=== PATIENT | female | born 1960 | race Caucasian/White ===

== ENCOUNTER 2020-06-22 10:05 | Outpatient (REF) | payer OTHER, SELFPAY ==
[2020-06-22 12:19] LABS: MANUAL DIFF FLAG NO
[2020-06-22 12:26] LABS: Basophils Absolute Auto 0.1 X10*3/uL (0.0-0.2); Basophils Percent Auto 0.5 % (0-2); Eosinophils Absolute Auto 0.3 X10*3/uL (0.0-0.4); Eosinophils Percent Auto 2.6 % (0-4); Hematocrit 40.9 % (37-47); Hemoglobin 13.2 g/dl (12.0-16.0); Imm Gran Abs Auto 0.04 X10*3/uL (0.00-0.03); Imm Gran Pct Auto 0.4 % (0.0-0.4); Lymphocytes Absolute Auto 2.9 X10*3/uL (1.2-4.9); Lymphocytes Percent Auto 29.6 % (20-40); Mean Corpuscular HGB Conc 32.3 g/dl (31.0-35.0); Mean Corpuscular Hemoglobin 29.1 pg (27.0-33.0); Mean Corpuscular Volume 90.3 fL (80-98); Mean Platelet Volume 12.9 fL (9.4-12.3); Monocytes Absolute Auto 0.8 X10*3/uL (0.1-1.2); Monocytes Percent Auto 8.2 % (2-11); Neutrophils Absolute Auto 5.8 X10*3/uL (2.0-8.3); Neutrophils Percent Auto 58.7 % (45-73); Platelet Count 204 X10*3/uL (160-400); Red Blood Count 4.53 X10*6/uL (4.20-5.50); Red Cell Distribution Width 12.4 % (11.0-16.0); White Blood Count 9.9 X10*3/uL (4.8-10.8)
[2020-06-22 12:40] LABS: Glucose Urine UA >=1000 MG/DL (NEG); Leukocyte Esterase Urine NEG (NEG); Nitrite Urine NEG (NEG); PH 5.5 (5.0-8.0); Urine Blood NEG (NEG); Urine Ketones NEG (NEG); Urine Protein NEG (NEG-TRACE)
[2020-06-22 12:41] LABS: Appearance Urine HAZY; Color Urine YELLOW
[2020-06-22 13:08] LABS: Bacteria Urine 3+ /LPF; RBC Urine 0 /HPF (0); Squamous Epithelial Cell Urine TRACE /LPF; WBC Clumps Urine NOTED; WBC Urine 50-75 /HPF (0-4)
[2020-06-22 13:56] LABS: Creatinine Urine 70.19 mg/dL; Microalbum/Creatinine Ratio Ur 24.2 ug/mg cr
[2020-06-22 14:14] LABS: Hemoglobin A1c % > 14.0 %
[2020-06-22 14:46] LABS: TSH reflex Free T4 1.63 uIU/mL (0.32-4.0)
[2020-06-22 15:06] LABS: Alanine Aminotransferase 9 U/L (0-31); Albumin Level 3.7 g/dL (3.5-5.0); Alkaline Phosphatase 98 U/L (39-117); Anion Gap 12 (12-20); Aspartate Amino Transferase 7 U/L (5-31); Bilirubin Total 0.3 mg/dL (0.0-1.0); Blood Urea Nitrogen 25 mg/dL (9-16); Calcium 8.8 mg/dL (8.4-10.2); Carbon Dioxide 29 mmol/L (22-29); Chloride 100 mmol/L (96-108); Cholesterol 186 mg/dL; Estimated Glomerular Filt Rate 45; HDL Cholesterol 31 mg/dL; LDL Cholesterol Calculated 119 mg/dl; Potassium 5.3 mmol/L (3.3-5.1); Sodium 136 mmol/L (135-145); Total Protein 6.9 g/dL (6.5-8.0); Triglycerides 180 mg/dL
[2020-06-22 15:10] LABS: Glucose Fasting 373 mg/dL (60-99)
== END 2020-06-22 10:06 | disposition home or self-care (01) ==
LOC: HO.10HDL 10:05
PROVIDERS: Visit Provider Internal Medicine
DX: E11.22 Type 2 diabetes mellitus with diabetic chronic kidney disease (principal); I12.9 Hypertensive chronic kidney disease with stage 1 through stage 4 chronic kidney disease, or unspecified chronic kidney disease; N18.2 Chronic kidney disease, stage 2 (mild); K21.9 Gastro-esophageal reflux disease without esophagitis; F17.200 Nicotine dependence, unspecified, uncomplicated; E78.00 Pure hypercholesterolemia, unspecified; E66.01 Morbid (severe) obesity due to excess calories; Z68.42 Body mass index [BMI] 45.0-49.9, adult
CPT/HCPCS: 36415; 80053; 80061; 81001; 82043; 83036; 84443; 85025; 87086; 87088; 87186

== ENCOUNTER → 2020-07-21 13:24 | Outpatient (BNVA) | payer OTHER, SELFPAY | PROVIDERS: PCP Internal Medicine; Referring Provider Internal Medicine; Visit Provider Internal Medicine Endocrinology, Diabetes & Metabolism | DX: E11.65 Type 2 diabetes mellitus with hyperglycemia (principal); E11.42 Type 2 diabetes mellitus with diabetic polyneuropathy; Z79.4 Long term (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; I10 Essential (primary) hypertension; E78.00 Pure hypercholesterolemia, unspecified; E66.01 Morbid (severe) obesity due to excess calories; Z68.42 Body mass index [BMI] 45.0-49.9, adult | CPT/HCPCS: 82947; 99212 ==

== ENCOUNTER 2020-12-02 22:45 | Emergency (ER) | payer OTHER, SELFPAY ==
[2020-12-02 23:40] VITALS: BP 151/68; PULSE 97; RESP 20; TEMP 37.1; O2SAT 97; BMI 42.9
--- NOTE | 2020-12-03 06:20 | ED_ITS ---
HPI - Extremity Problem General Chief complaint: Extremity Problem Stated complaint: leg pain Time Seen by Provider: 12/03/20 06:09 Source: patient Mode of arrival: ambulatory Limitations: no limitations History of Present Illness HPI Narrative: 60-year-old female who presents emergency department for evaluation of a nonhealing ulcer to her right lower extremity with surrounding erythema. The patient states that over the past 2 weeks she had an ulcer that developed over her right ankle which was not healing. She states that she has had a similar ulcer this area in the past. She states that she has also noticed increased redness around the ulcer with increased warmth and pain. She denied fever, chills, fatigue, nausea, vomiting, chest pain or shortness of breath. The patient is a diabetic. Related Data Home Medications Medication Instructions Recorded Confirmed flash glucose sensor #1 ea 03/22/20 07/21/20 Previous Rx's Medication Instructions Recorded atorvastatin 80 mg tablet 80 mg PO BEDTIME 30 Days #30 tab 07/21/20 blood sugar diagnostic (FreeStyle #120 ea 07/21/20 Lite Strips) dulaglutide 1.5 mg/0.5 mL 1.5 mg SUBCUT QWEEK 30 Days #2.5 ml 07/21/20 subcutaneous pen injector insulin aspart See Rx Instructions SUBCUT TID 30 07/21/20 (niacinamide)(U-100) 100 unit/mL(3 Days #15 ml mL) subcutaneous pen (Fiasp FlexTouch U-100 Insulin) insulin degludec 200 unit/mL (3 70 unit SUBCUT QAM 30 Days #12 ml 07/21/20 mL) subcutaneous pen metformin 500 mg tablet,extended 500 mg PO BID 30 Days #60 tab 07/21/20 release 24 hr pen needle, diabetic 32 gauge x #400 ea 07/21/2032 (BD Katie 2nd Gen Pen Needle) lisinopril 5 mg tablet 5 mg PO DAILY #30 tab 10/12/20 cefadroxil 1 gram tablet 1,000 mg PO BID 7 Days #14 tab 12/03/20 doxycycline hyclate 100 mg tablet 100 mg PO Q12H 7 Days #14 tab 12/03/20 Allergies Allergy/AdvReac Type Severity Reaction Status Date / Time No Known Allergies Allergy Verified 09/24/20 15:37 Review of Systems Review of Systems: Yes all other systems are reviewed and are negative PMFSH Past Medical History Medical History Benign essential hypertension Chronic kidney disease (CKD), stage II (mild) (Unknown) Chronic kidney disease, stage III (moderate) Diabetes type 2, uncontrolled Diabetic polyneuropathy associated with type 2 diabetes mellitus Dyslipidemia GERD without esophagitis 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 Morbid obesity with BMI of 45.0-49.9, adult Pure hypercholesterolemia Smoker Type 2 diabetes mellitus with diabetic chronic kidney disease Ulcer of right ankle Urinary incontinence Varicose 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 Surgical History Hx of section Hx of umbilical hernia repair Hx of vascular surgery Status post phlebectomy Family History Family History Father CVA (cerebral vascular accident) Heart disease Mother Lung disease Son ADHD Social History Social History Household Members: Family Housing: House Alcohol intake: never Patient Tobacco Use Status: Current everyday Tobacco user Cigarettes Per Day: 10 Advance Directives: No Advance Directives Information Provided: Yes service: No Current occupational status: unemployed Physical Exam Vital Signs: Vital Signs: Last Vital Signs Temp 98.7 F 12/02/20 23:40 Pulse 97 12/02/20 23:40 Resp 20 12/02/20 23:40 BP 151/68 H 12/02/20 23:40 Pulse Ox 97 12/02/20 23:40 Body Mass Index 42.9 Const: General: cooperative Nutritional Appearance: obese Orientation/consciousness: oriented to person and oriented to place Limitations: no limitations HENMT: Head: Yes normal to inspection Ears: external ears normal General nose exam: Normal external nose present Face and sinus: Yes normal facial exam Eyes: General: appearance normal, both eyes and all related structures Neck: Neck: Yes normal visual inspection and Yes supple Chest: Chest palpation & inspection: normal inspection of the chest Resp: Effort & Inspection: normal respiratory effort GI: Palpation (GI): Soft to palpation, nontender and no guarding Neuro: General: oriented to person and oriented to place Extrem: Other: The patient has a circular area of skin breakdown to the right lower extremity just above the ankle, there is an area of surrounding erythema measuring approximately 10 x 8 cm which is warm to the touch, there is no discharge noted, the patient has some nonpitting edema and there was no flocculence noted to palpation. Psych: Appearance: grossly normal Course Course Course Narrative: 60-year-old female with history of diabetes who presents emergency department for a nonhealing wound to her right lower extremity x2 weeks with erythema and increased warmth. Patient does have some skin breakdown over her right lower extremity just above the ankle with surrounding erythema with increased warmth. There is no evidence for an abscess at this time. The patient will be started on Duricef 1000 mg twice a day for 7 days and doxycycline 100 mg twice a day for 7 days. She was advised to use a heating pad on low for 15 minutes 4 to 6 times a day and keep her leg elevated. She was discharged home. The patient was given verbal and printed instructions prior to discharge. The patient was advised to follow-up with her PCP in 2 days and to return to the emergency department if her symptoms get worse or if she develops any new symptoms that are concerning to her. Discharge Plan Discharge Clinical Impression: Cellulitis of right lower extremity Patient Disposition: Home, Self-Care Instructions: Cellulitis (ED) Additional Instructions: Cellulitis Discharge Instructions You have an infection of your skin. This is called cellulitis. This is usually caused by bacteria on your skin that gets under your skin and then causes the infection Take Duricef 1000 mg, 1 pill twice a day for 7 days. Also take doxycycline 100 mg pills, 1 pill twice a day for 7 days. These are antibiotics that should help your body fight off the infection. Keep the area of cellulitis elevated to help reduce swelling in the infected area and this helps with the healing process Also apply a heating pad on low or a warm compress for 15 minutes, 4-6 times a day. This will increase the blood flow to the area and will bring white blood cells to the area which will help your body fight off the infection. Also take Tylenol( acetaminophen) 325 mg pills, 2 pills every 4 hours as needed for pain. If we greta a line around the area of cellulitis, the redness should withdraw from the line in the next 1-3 days. If the redness crosses the line this is a sign that the infection is getting wor se and you should see your doctor or return to the Emergency Department for a recheck. Other signs of worsening infection include fever, chills, weakness, increased pain, increased redness, increased swelling or red streaks going away from the area of infection. If you develop any of these symptoms or any other symptoms that are concerning to you, see your doctor immediately or return to the Emergency Department. Follow up with your doctor in 3 days for a recheck Please read the other printed instructions on cellulitis. Prescriptions: New doxycycline hyclate 100 mg tablet 100 mg PO Q12H 7 Days Qty: 14 RF: 0 cefadroxil 1 gram tablet 1,000 mg PO BID 7 Days Qty: 14 RF: 0 No Action lisinopril 5 mg tablet 5 mg PO DAILY Qty: 30 RF: 4 (DME) FreeStyle Mariana 14 Day Sensor Kit See Rx Instructions ea topical Q2W Qty: 1 RF: 0 insulin degludec 200 unit/mL (3 mL) insulin pen 70 unit subcut QAM 30 Days Qty: 12 RF: 6 Fiasp FlexTouch U-100 Insulin 100 unit/mL (3 mL) insulin pen See Rx Instructions subcut TID 30 Days Qty: 15 RF: 6 dulaglutide 1.5 mg/0.5 mL pen injector 1.5 mg subcut QWEEK 30 Days Qty: 2.5 RF: 6 (DME) FreeStyle Lite Strips Strip See Rx Instructions .ROUTE .MEDSUPPLY Qty: 120 RF: 12 metformin 500 mg tablet extended release 24 hr 500 mg PO BID 30 Days Qty: 60 RF: 6 (DME) pen needle, diabetic [BD Katie 2nd Gen Pen Needle] 32 gauge x 5/32 needle See Rx Instructions .MEDSUPPLY Qty: 400 RF: 4 atorvastatin 80 mg tablet 80 mg PO BEDTIME 30 Days Qty: 30 RF: 6
== END 2020-12-03 07:04 | disposition home or self-care (01) ==
PROVIDERS: Emergency Provider Emergency Medicine Emergency Medical Services; PCP Internal Medicine
DX: L03.115 Cellulitis of right lower limb (principal); E11.22 Type 2 diabetes mellitus with diabetic chronic kidney disease; I12.9 Hypertensive chronic kidney disease with stage 1 through stage 4 chronic kidney disease, or unspecified chronic kidney disease; N18.30 Chronic kidney disease, stage 3 unspecified; E78.5 Hyperlipidemia, unspecified; F17.210 Nicotine dependence, cigarettes, uncomplicated; E66.01 Morbid (severe) obesity due to excess calories; Z68.42 Body mass index [BMI] 45.0-49.9, adult; Z79.4 Long term (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; Z79.02 Long term (current) use of antithrombotics/antiplatelets; Z79.899 Other long term (current) drug therapy
CPT/HCPCS: 99283

== ENCOUNTER 2021-06-18 08:02 | Outpatient (REF) | payer OTHER, SELFPAY ==
[2021-06-18 08:17] LABS: MANUAL DIFF FLAG NO
[2021-06-18 08:47] LABS: Basophils Percent Auto 0.4 % (0-2); Eosinophils Absolute Auto 0.3 X10*3/uL (0.0-0.4); Eosinophils Percent Auto 2.5 % (0-4); Hematocrit 40.4 % (37.0-47.0); Hemoglobin 13.1 g/dl (12.0-16.0); Imm Gran Abs Auto 0.08 X10*3/uL (0.00-0.03); Imm Gran Pct Auto 0.7 % (0.0-0.4); Lymphocytes Absolute Auto 3.2 X10*3/uL (1.2-4.9); Lymphocytes Percent Auto 27.9 % (20-40); Mean Corpuscular HGB Conc 32.4 g/dl (31.0-35.0); Mean Corpuscular Hemoglobin 29.5 pg (27.0-33.0); Mean Platelet Volume 12.4 fL (9.4-12.3); Monocytes Absolute Auto 0.8 X10*3/uL (0.1-1.2); Monocytes Percent Auto 7.4 % (2-11); Neutrophils Percent Auto 61.1 % (45-73); Platelet Count 222 X10*3/uL (160-400); Red Blood Count 4.44 X10*6/uL (4.20-5.50); Red Cell Distribution Width 12.3 % (11.0-16.0); White Blood Count 11.4 X10*3/uL (4.8-10.8)
[2021-06-18 08:55] LABS: Hemoglobin A1c % > 14.0 %
[2021-06-18 09:05] LABS: Alanine Aminotransferase 15 U/L (0-31); Albumin Level 3.5 g/dL (3.5-5.0); Alkaline Phosphatase 103 U/L (39-117); Anion Gap 9 (12-20); Aspartate Amino Transferase 12 U/L (5-31); Bilirubin Total 0.4 mg/dL (0.0-1.0); Blood Urea Nitrogen 24 mg/dL (9-16); Calcium 9.3 mg/dL (8.4-10.2); Carbon Dioxide 29 mmol/L (22-29); Chloride 98 mmol/L (96-108); Cholesterol 175 mg/dL; Estimated Glomerular Filt Rate 44; HDL Cholesterol 29 mg/dL; LDL Cholesterol Calculated 109 mg/dl; Potassium 5.1 mmol/L (3.3-5.1); Sodium 131 mmol/L (135-145); Total Protein 6.8 g/dL (6.5-8.0); Triglycerides 186 mg/dL
[2021-06-18 09:22] LABS: Glucose Fasting 420 mg/dL (60-99); TSH reflex Free T4 2.21 uIU/mL (0.32-4.0)
[2021-06-18 09:26] LABS: Appearance Urine CLOUDY; Color Urine YELLOW; Glucose Urine UA >=1000 MG/DL (NEG); Leukocyte Esterase Urine 2+ (NEG); Nitrite Urine NEG (NEG); PH 5.5 (5.0-8.0); Specific Gravity - Urine 1.015 (1.005-1.025); UACC Culture Trigger YES; Urine Blood 2+ (NEG); Urine Ketones NEG (NEG); Urine Protein TRACE MG/DL (NEG-TRACE)
[2021-06-18 09:40] LABS: Vitamin D 25-OH Total 18.2 ng/mL (>30)
[2021-06-18 09:45] LABS: WBC Urine TNTC /HPF (0-4)
[2021-06-18 09:46] LABS: Bacteria Urine 2+ /LPF; WBC Clumps Urine NOTED
[2021-06-18 09:47] LABS: Creatinine Urine 51.68 mg/dL; Microalbum/Creatinine Ratio Ur 108.3 ug/mg cr
== END 2021-06-18 08:03 | disposition home or self-care (01) ==
LOC: HO.LAB 08:02
PROVIDERS: Absent Provider Internal Medicine; PCP Internal Medicine; Visit Provider Internal Medicine Endocrinology, Diabetes & Metabolism
DX: E78.00 Pure hypercholesterolemia, unspecified (principal); I10 Essential (primary) hypertension; E55.9 Vitamin D deficiency, unspecified; E11.9 Type 2 diabetes mellitus without complications
CPT/HCPCS: 36415; 80053; 80061; 81001; 82043; 82306; 83036; 84443; 85025; 87086; 87088; 87186

== ENCOUNTER → 2021-06-21 14:49 | Outpatient (BNVA) | payer OTHER, SELFPAY | PROVIDERS: PCP Internal Medicine; Visit Provider Internal Medicine Endocrinology, Diabetes & Metabolism | DX: E11.65 Type 2 diabetes mellitus with hyperglycemia (principal); E11.42 Type 2 diabetes mellitus with diabetic polyneuropathy; E11.22 Type 2 diabetes mellitus with diabetic chronic kidney disease; N18.30 Chronic kidney disease, stage 3 unspecified; Z79.4 Long term (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 | CPT/HCPCS: 82947; 99212 ==

== ENCOUNTER → 2021-09-20 13:04 | Outpatient (BNVA) | payer BC, SELFPAY | PROVIDERS: PCP Internal Medicine; Visit Provider Internal Medicine Endocrinology, Diabetes & Metabolism | DX: E11.65 Type 2 diabetes mellitus with hyperglycemia (principal); Z79.84 Long term (current) use of oral hypoglycemic drugs | CPT/HCPCS: 82947; 83036 ==

== ENCOUNTER → 2021-11-03 13:22 | Outpatient (BNVA) | payer BC, SELFPAY | PROVIDERS: PCP Internal Medicine; Visit Provider Dietitian, Registered | DX: E11.65 Type 2 diabetes mellitus with hyperglycemia (principal) | CPT/HCPCS: 97802 ==

== ENCOUNTER → 2021-12-20 13:59 | Outpatient (BNVA) | payer BC, SELFPAY | PROVIDERS: PCP Internal Medicine; Visit Provider Dietitian, Registered | DX: E11.65 Type 2 diabetes mellitus with hyperglycemia (principal) | CPT/HCPCS: 97803 ==

== ENCOUNTER → 2022-01-20 13:04 | Outpatient (BNVA) | payer BC, SELFPAY | PROVIDERS: PCP Internal Medicine; Visit Provider Internal Medicine Endocrinology, Diabetes & Metabolism | DX: E11.65 Type 2 diabetes mellitus with hyperglycemia (principal) | CPT/HCPCS: 82947 ==

== ENCOUNTER 2022-03-15 13:22 | Emergency (ER) | payer BC, SELFPAY ==
--- NOTE | 2022-03-15 16:19 | PC.NURSE ---
Pt called for triage no answer.
--- NOTE | 2022-03-15 16:52 | PC.NURSE ---
Pt called for triage no answer.
--- NOTE | 2022-03-15 20:00 | PC.NURSE ---
called for triage, not in waiting room.
== END 2022-03-15 20:08 | disposition left against medical advice (07) ==
LOC: HO.ED 18:28
PROVIDERS: Emergency Provider Emergency Medicine; PCP Internal Medicine
DX: R22.1 Localized swelling, mass and lump, neck (principal)

== ENCOUNTER → 2022-05-02 11:34 | Outpatient (BNVA) | payer BC, SELFPAY | PROVIDERS: PCP Internal Medicine; Visit Provider Registered Nurse Diabetes Educator | DX: E11.65 Type 2 diabetes mellitus with hyperglycemia (principal) ==

== ENCOUNTER 2022-06-19 09:49 | Outpatient (REF) | payer BC, SELFPAY ==
[2022-06-19 10:59] LABS: Appearance Urine Turbid; Color Urine Yellow; Glucose Urine UA >=1000 mg/dL (Negative); Leukocyte Esterase Urine Moderate (2+) (Negative); Nitrite Urine Positive (Negative); PH 5.5 (5.0-9.0); Specific Gravity - Urine >= 1.030 (1.005-1.025); UMIC TRIGGER UACC YES; Urine Blood Small (1+) (Negative); Urine Ketones Negative (Negative); Urine Protein 30 (1+) mg/dL (Neg-Trace)
[2022-06-19 11:09] LABS: MANUAL DIFF FLAG NO
[2022-06-19 11:12] LABS: Basophils Absolute Auto 0.1 X10*3/uL (0.0-0.2); Basophils Percent Auto 0.7 % (0-2); Eosinophils Absolute Auto 0.3 X10*3/uL (0.0-0.4); Eosinophils Percent Auto 2.5 % (0-4); Hematocrit 43.1 % (37.0-47.0); Hemoglobin 14.6 g/dl (12.0-16.0); Imm Gran Abs Auto 0.05 X10*3/uL (0.00-0.03); Imm Gran Pct Auto 0.4 % (0.0-0.4); Lymphocytes Absolute Auto 3.2 X10*3/uL (1.2-4.9); Lymphocytes Percent Auto 28.4 % (20-40); Mean Corpuscular HGB Conc 33.9 g/dl (31.0-35.0); Mean Corpuscular Hemoglobin 30.2 pg (27.0-33.0); Mean Corpuscular Volume 89.2 fL (80.0-98.0); Mean Platelet Volume 12.8 fL (9.4-12.3); Monocytes Percent Auto 8.6 % (2-11); Neutrophils Absolute Auto 6.8 x10*3/uL (2.0-8.3); Neutrophils Percent Auto 59.4 % (45-73); Platelet Count 218 X10*3/uL (160-400); Red Blood Count 4.83 X10*6/uL (4.20-5.50); Red Cell Distribution Width 12.4 % (11.0-16.0); White Blood Count 11.4 X10*3/uL (4.8-10.8)
[2022-06-19 11:32] LABS: Bacteria Urine 4+ (None Seen); Hyaline Casts Urine 0-2 /LPF (0-2); RBC Urine 0-2 /HPF (0-2); UACC Culture Trigger YES; WBC Clumps Urine Present; WBC Urine >50 /HPF (0-5)
[2022-06-19 11:44] LABS: Creatinine Urine 105.47 mg/dL; Microalbum/Creatinine Ratio Ur 189.6 ug/mg cr
[2022-06-19 11:57] LABS: Alanine Aminotransferase 23 U/L (0-31); Albumin Level 3.6 g/dL (3.5-5.0); Alkaline Phosphatase 92 U/L (39-117); Anion Gap 14 (12-20); Aspartate Amino Transferase 18 U/L (5-31); Bilirubin Total 0.6 mg/dL (0.0-1.0); Blood Urea Nitrogen 17 mg/dL (9-16); Calcium 8.9 mg/dL (8.4-10.2); Carbon Dioxide 26 mmol/L (22-29); Chloride 100 mmol/L (96-108); Cholesterol 182 mg/dL; Estimated Glomerular Filt Rate 52; Glucose Fasting 439 mg/dL (60-99); HDL Cholesterol 28 mg/dL; LDL Cholesterol Calculated 117 mg/dl; Potassium 5.3 mmol/L (3.3-5.1); Sodium 135 mmol/L (135-145); Total Protein 6.9 g/dL (6.5-8.0); Triglycerides 185 mg/dL
[2022-06-19 12:05] LABS: Estimated Average Glucose 329 mg/dL; Hemoglobin A1c % 13.1 %
[2022-06-19 12:09] LABS: TSH reflex Free T4 1.45 uIU/mL (0.32-4.0)
== END 2022-06-19 09:50 | disposition home or self-care (01) ==
LOC: HO.10HDL 09:49
PROVIDERS: Internal Medicine Endocrinology, Diabetes & Metabolism; Visit Provider Internal Medicine
DX: E11.9 Type 2 diabetes mellitus without complications (principal); I10 Essential (primary) hypertension; E78.00 Pure hypercholesterolemia, unspecified; R82.90 Unspecified abnormal findings in urine
CPT/HCPCS: 36415; 80053; 80061; 81001; 81003; 82043; 83036; 84443; 85025; 87086; 87088; 87186

== ENCOUNTER → 2022-06-22 15:39 | Outpatient (BNVA) | payer BC, SELFPAY | PROVIDERS: PCP Internal Medicine; Visit Provider Internal Medicine Endocrinology, Diabetes & Metabolism | DX: E11.65 Type 2 diabetes mellitus with hyperglycemia (principal); E78.5 Hyperlipidemia, unspecified | CPT/HCPCS: 82947 ==

== ENCOUNTER 2022-11-02 14:29 | Outpatient (AMB) | payer OTHER, MEDICAID, SELFPAY ==
--- NOTE | 2022-11-02 14:54 | A.OFFVIS_ITS ---
Intake Intake Visit Reasons: DM With Mariana Allergies No Known Allergies Allergy (Verified 10/12/22 11:40) HPI Comprehensive Diabetes Asmnt Most Recent Diabetes Results: Microalb/Creat Ratio TNP 09/17/22 Cholesterol TNP 09/17/22 HDL Cholesterol TNP 09/17/22 Triglycerides TNP 09/17/22 Creatinine TNP 09/17/22 Blood Urea Nitrogen TNP 09/17/22 Sodium TNP 09/17/22 Potassium TNP 09/17/22 Chloride TNP 09/17/22 Carbon Dioxide TNP 09/17/22 Calcium TNP 09/17/22 AST TNP 09/17/22 ALT TNP 09/17/22 Total Protein TNP 09/17/22 Albumin TNP 09/17/22 PFSH Medical History Benign essential hypertension Chronic kidney disease, stage III (moderate) Diabetes type 2, uncontrolled Diabetic polyneuropathy associated with type 2 diabetes mellitus Dyslipidemia GERD without esophagitis 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 Morbid obesity with BMI of 45.0-49.9, adult Pure hypercholesterolemia Smoker Type 2 diabetes mellitus with diabetic chronic kidney disease Ulcer of right ankle Urinary incontinence Varicose 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 Surgical History Hx of section Hx of umbilical hernia repair Hx of vascular surgery Status post phlebectomy Family History Father CVA (cerebral vascular accident) Heart disease Mother Lung disease Son ADHD Other Mental health problem Social History Household Members: Family Housing: House Alcohol intake: never Patient Tobacco Use Status: Current everyday Tobacco user Cigarettes Per Day: 5 e-Cigarette/Vaping Use: Never Used Second Hand Smoke Exposure: Yes service: No Current occupational status: unemployed Cognitive needs: No Hearing needs: No Vision needs: No Assessment & Plan Assessment & Plan (1) Diabetes type 2, uncontrolled: Code(s): E11.65 - Type 2 diabetes mellitus with hyperglycemia Qualifiers: Glycemic state: with hyperglycemia Qualified Code(s): E11.65 - Type 2 diabetes mellitus with hyperglycemia Plan: Learning objectives: The patient was provided with verbal and written education on the following to pics as outlined below. Assess patient education level/literacy/barriers Patient questions/concerns The patient met all learning objectives and was able to verbalize understanding and provide teach back of education topics discussed . The patient was provided with the opportunity to ask questions and all questions were answered. Patient A1c has improved from 12.3 in to 9.7% in 10/13/2022. Patient reports she has reduce the amount of regular soda and change portions of carbohydrates snacks. She has recently joined a gym, which has a pool. She reports she plans on swimming 3 times weekly She is currently on Toujeo 73 units daily Humalog 22 units before meals Metformin 500 mg b.i.d. Mounjaro 5 mg weekly Discuss medication action with patient patient agreed to increase dose of Mounjaro, after using the rest of her 5 mg pens Topics covered in today?s session included: Medications (If applicable) ? Name of medication? Dosing/administration instructions? Mechanism of action? Potential side effects? Potential adverse reaction and appropriate treatment? Review onset, peak, duration Assess for concerns re: insurance coverage, cost, barriers to compliance Insulin/Injectables (If applicable) ? Storage/care of insulin? Injection sites? Site rotation? Onset, peak, duration ? Drawing up insulin? Injecting insulin/other injectables? Sharps disposal Continuous blood glucose monitoring (if applicable) Hypoglycemia and Hyperglycemia ? Signs and symptoms? Causes? Treatment? Preventing hypoglycemia? When to seek medical attention ?Blood glucose targets and how you feel when your blood glucose is in and out of your target ranges. ?Monitoring and knowing your A1C. ?What can make blood glucose go up and down and preventing high and low blood glucose. ?Review of blood sugar targets in expected goal range and outside of expected goal range. ?Problem solving and preventing hyper/hypoglycemia. ?Sick day management of diabetes. ?Using blood sugar results in decision making process in managing diabetes. ?Patient was receptive to information provided and participated in the discussion. Asked?appropriate questions and demonstrated good understanding of the topics discussed.? ? Educational Materials: The patient was provided with the following written educational materials: Target Goal handout New Smart Goal: Patient will swim 30-45 minutes 3 times a week Patient Response to instructions: Comprehension of Instructions: Good Readiness to make changes:? Contemplation How confident they feel about making changes: Positive Patient Instructions: Start Mounjaro 7.5 mg, after completing 5 mg pens. Follow-up with Diabetes Education nurse in 3 months Coding Level of Care Code Est Pt Level 1 (63521) Diagnoses Diabetes type 2, uncontrolled E11.65 Glycemic state: with hyperglycemia
== END 2022-11-02 15:13 | disposition home or self-care (01) ==
LOC: HO.ENCR 14:29
PROVIDERS: PCP Internal Medicine; Visit Provider Registered Nurse Diabetes Educator
DX: E11.65 Type 2 diabetes mellitus with hyperglycemia (principal)
CPT/HCPCS: 99211

== ENCOUNTER → 2022-11-02 14:29 | Outpatient (BNVA) | payer OTHER, MEDICAID, SELFPAY | PROVIDERS: PCP Internal Medicine; Visit Provider Registered Nurse Diabetes Educator ==

== ENCOUNTER 2022-11-10 | Outpatient (REF) | payer OTHER, MEDICAID, SELFPAY ==
[2022-11-10 15:12] LABS: Glucose Random 309 mg/dL (60-115)
[2022-11-10 15:18] LABS: Estimated Average Glucose 226 mg/dL; Hemoglobin A1c % 9.5 %
== END 2022-11-10 00:01 | disposition home or self-care (01) ==
LOC: HO.LAB
PROVIDERS: Visit Provider Physician Assistant Surgical
DX: E11.65 Type 2 diabetes mellitus with hyperglycemia (principal); E66.01 Morbid (severe) obesity due to excess calories
CPT/HCPCS: 36415; 82947; 83036; 99453

== ENCOUNTER 2022-11-10 13:51 | Outpatient (AMB) | payer OTHER, MEDICAID, SELFPAY ==
--- NOTE | 2022-11-10 14:25 | HO.OFFWMMET ---
Intake VS Expanded 11/10/22 14:40 Height 5 ft 4 in Weight 253 lb 12.8 oz BMI 43.6 BP 139/81 Blood Pressure Location Lt brachial Blood Pressure Position Sitting Pulse 100 Pulse Source Pulse Oximeter Temp 97.4 F Temperature Source Temporal Artery Scan Pulse Oximetry 97 Body Fat 116.0 Body Fat Percentage 45.7 Free Fat Mass 137.8 Muscle Mass 131.0 Visceral Mass 16.0 Water Mass 97.8 BMR 1,930 Intake Visit Reasons: (OV) metabolic group clinic Allergies No Known Allergies Allergy (Verified 10/12/22 11:40) HPI HPI Comments History of Present Illness Details This is a 62 year old female who presents for metabolic clinic. They are being followed for obesity and related conditions, including diabetes and hypertension. Initial weight upon presentation on 11/10/22 was 253.8 pounds with a BMI of 43.6. Patient reports she is interested in the metabolic clinic and is hopeful to lose weight and reduce reliance on medications for her DM and HTN. 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 Morbid obesity with BMI of 45.0-49.9, adult Pure hypercholesterolemia Smoker Type 2 diabetes mellitus with diabetic chronic kidney disease Ulcer of right ankle Urinary incontinence Varicose 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 Surgical History Hx of section Hx of umbilical hernia repair Hx of vascular surgery Status post phlebectomy Family History Father CVA (cerebral vascular accident) Heart disease Mother Lung disease Son ADHD Other Mental health problem Social History Household Members: Family Housing: House Alcohol intake: never Patient Tobacco Use Status: Current everyday Tobacco user Cigarettes Per Day: 5 e-Cigarette/Vaping Use: Never Used Second Hand Smoke Exposure: Yes service: No Current occupational status: unemployed Cognitive needs: No Hearing needs: No Vision needs: No Physical Exam Vital Signs: Last Vital Signs Temp 97.4 F 11/10/22 14:40 Pulse 100 11/10/22 14:40 BP 139/81 11/10/22 14:40 Pulse Ox 97 11/10/22 14:40 BMI result Body Mass Index 43.6 Results Reviewed Results Reviewed: HgbA1c 10.1, down from 13 on 06/19/22 Assessment & Plan Assessment & Plan (1) Morbid obesity: Code(s): E66.01 - Morbid (severe) obesity due to excess calories Plan: Introduced to metabolic clinic given glucometer, scale, bp cuff will go through right [employer] for meal plan and exercise plan at next visit Connected her to [employer] and website Orders: Orders Glucose Random Today E11.65 - Type 2 diabetes mellitus with hyperglycemia Hemoglobin A1c Today E11.65 - Type 2 diabetes mellitus with hyperglycemia Coding Level of Care Code 05293 [facility] Intital setup, [facility] Diagnoses Morbid obesity E66.01
[2022-11-10 14:40] VITALS: BP 139/81; PULSE 100; TEMP 36.3; O2SAT 97; BMI 43.6
== END 2022-11-10 17:40 | disposition home or self-care (01) ==
LOC: HO.META 13:51
PROVIDERS: PCP Internal Medicine; Visit Provider Physician Assistant Surgical
DX: E66.01 Morbid (severe) obesity due to excess calories (principal)

== ENCOUNTER 2022-12-08 13:55 | Outpatient (AMB) | payer OTHER, MEDICAID, SELFPAY ==
--- NOTE | 2022-12-08 13:58 | HO.OFFWMMET ---
Intake VS Expanded 12/08/22 14:05 Height 5 ft 4 in Weight 253 lb 12.8 oz BMI 43.6 BP 136/81 Blood Pressure Location Lt brachial Blood Pressure Position Sitting Pulse 105 H Pulse Source Pulse Oximeter Temp 97.2 F Temperature Source Temporal Artery Scan Pulse Oximetry 97 Oxygen Delivery Method Room Air Body Fat 112.8 Body Fat Percentage 44.5 Free Fat Mass 140.8 Muscle Mass 133.8 Visceral Mass 15.0 Water Mass 99.8 BMR 1,965 Intake Visit Reasons: (OV) Metabolic Health Clinic F/U Director Dance Required: No Allergies No Known Allergies Allergy (Verified 12/08/22 14:01) Medication List - Last Reconciled 12/08/22 by YVETTE Curiel atorvastatin 80 mg PO BEDTIME 90 days blood sugar diagnostic (FreeStyle Lite Strips) As directed 4 times a day - Dx: 11.22 - DIABETES flash glucose sensor (FreeStyle Mariana 2 Sensor kit) As directed every 2 weeks Humalog KwikPen Insulin (insulin lispro) 22 units (0.22 mL) subcut TID NS insulin glargine U-300 conc (Toujeo SoloStar U-300 Insulin) 73 units (0.2433 mL) subcut DAILY lisinopril 5 mg PO DAILY metformin ER 500 mg PO BID 30 days mometasone 0.1% 1 appl topical DAILY PRN mupirocin 2% 1 appl topical TID 10 days nortriptyline 10 mg PO BEDTIME 30 days pen needle, diabetic (BD Katie 2nd Gen Pen Needle) inject Rx as directed up to 5 times a day tirzepatide (Mounjaro) 5 mg subcut QWEEK HPI HPI Comments History of Present Illness Details 62 yo female returns to the metabolic clinic in follow up. She had car trouble and the of an animal and missed several appointments. She has maintained her weight since starting the program and weighs 253.8 pounds today. No weight loss or gain since 11/10/22. Coontinues to smoke 5-6 cigarettes daily. BS 160 am and 180-220 pm. Reports only taking 500 mg metformin daily instead of 1 gm BID as she feels this med gives her gas and bloating. She is still very interested in participating in the metabolic clinic program. 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 Morbid obesity with BMI of 45.0-49.9, adult Pure hypercholesterolemia Smoker Type 2 diabetes mellitus with diabetic chronic kidney disease Ulcer of right ankle Urinary incontinence Varicose 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 Surgical History Hx of section Hx of umbilical hernia repair Hx of vascular surgery Status post phlebectomy Family History Father CVA (cerebral vascular accident) Heart disease Mother Lung disease Son ADHD Other Mental health problem Social History Household Members: Family Housing: House Alcohol intake: never Patient Tobacco Use Status: Current everyday Tobacco user Cigarettes Per Day: 5 e-Cigarette/Vaping Use: Never Used Second Hand Smoke Exposure: Yes service: No Current occupational status: unemployed Cognitive needs: No Hearing needs: No Vision needs: No Physical Exam Vital Signs: Last Vital Signs Temp 97.2 F 12/08/22 14:05 Pulse 105 H 12/08/22 14:05 BP 136/81 12/08/22 14:05 Pulse Ox 97 12/08/22 14:05 Oxygen Delivery Method Room Air 12/08/22 14:05 BMI result Body Mass Index 43.6 Assessment & Plan Assessment & Plan (1) Morbid obesity: Code(s): E66.01 - Morbid (severe) obesity due to excess calories Plan: Assisted pt go through [employer] and she was given meal plan and exercise plan. Encouraged to quit smoking Encouraged to very closely monitor bloood glucose levels with initiation of new meal plan. Has membership to [employer] and given exercise plans based on her activities she does at the gym (treadmill/bike/swimming) Medications: Changed From tirzepatide (Mounjaro) 7.5 mg (0.5 mL) subcut QWEEK 2 mL 4RF To tirzepatide (Mounjaro) 5 mg subcut QWEEK Coding Level of Care Code 41432 RPM rcrd/trans ea 30 d Diagnoses Morbid obesity E66.01
[2022-12-08 14:05] VITALS: BP 136/81; PULSE 105; TEMP 36.2; O2SAT 97; BMI 43.6
== END 2022-12-08 16:07 | disposition home or self-care (01) ==
LOC: HO.META 13:55
PROVIDERS: PCP Internal Medicine; Referring Provider Internal Medicine; Visit Provider Physician Assistant Surgical
DX: E66.01 Morbid (severe) obesity due to excess calories (principal)

== ENCOUNTER → 2022-12-08 13:55 | Outpatient (BNVA) | payer OTHER, MEDICAID, SELFPAY | PROVIDERS: PCP Internal Medicine; Referring Provider Internal Medicine; Visit Provider Physician Assistant Surgical | DX: E66.01 Morbid (severe) obesity due to excess calories (principal); Z68.41 Body mass index [BMI] 40.0-44.9, adult; F17.210 Nicotine dependence, cigarettes, uncomplicated | CPT/HCPCS: 99454 ==

== ENCOUNTER 2022-12-28 18:49 | Emergency (ER) | payer OTHER, SELFPAY | END 2022-12-28 20:15 | disposition left against medical advice (07) | PROVIDERS: Emergency Provider Emergency Medicine; PCP Internal Medicine | DX: S99.921A Unspecified injury of right foot, initial encounter (principal); W19.XXXA Unspecified fall, initial encounter; Y93.9 Activity, unspecified; Y92.9 Unspecified place or not applicable; Y99.9 Unspecified external cause status ==

== ENCOUNTER 2023-02-19 12:55 | Outpatient (AMB) | payer MEDICARE, SELFPAY ==
--- NOTE | 2023-02-19 13:16 | MHC.AMDMED ---
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 Accompanied by: Self / Same As Patient Allergies No Known Allergies Allergy (Verified 12/08/22 14:01) HPI Comprehensive Diabetes Asmnt Most Recent Diabetes Results: Microalb/Creat Ratio TNP 09/17/22 Cholesterol TNP 09/17/22 HDL Cholesterol TNP 09/17/22 Triglycerides TNP 09/17/22 Creatinine TNP 09/17/22 Blood Urea Nitrogen TNP 09/17/22 Sodium TNP 09/17/22 Potassium TNP 09/17/22 Chloride TNP 09/17/22 Carbon Dioxide TNP 09/17/22 Calcium TNP 09/17/22 AST TNP 09/17/22 ALT TNP 09/17/22 Total Protein TNP 09/17/22 Albumin TNP 09/17/22 PFSH Medical History Benign essential hypertension Chronic kidney disease, stage III (moderate) Diabetes type 2, uncontrolled Diabetic polyneuropathy associated with type 2 diabetes mellitus Dyslipidemia GERD without esophagitis 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 Morbid obesity with BMI of 45.0-49.9, adult Pure hypercholesterolemia Smoker Type 2 diabetes mellitus with diabetic chronic kidney disease Ulcer of right ankle Urinary incontinence Varicose 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 Surgical History Hx of section Hx of umbilical hernia repair Hx of vascular surgery Status post phlebectomy Family History Father CVA (cerebral vascular accident) Heart disease Mother Lung disease Son ADHD Other Mental health problem Social History Household Members: Family Housing: House Alcohol intake: never Patient Tobacco Use Status: Current everyday Tobacco user Cigarettes Per Day: 5 e-Cigarette/Vaping Use: Never Used Second Hand Smoke Exposure: Yes service: No Current occupational status: unemployed Cognitive needs: No Hearing needs: No Vision needs: No Assessment & Plan Assessment & Plan (1) Diabetic polyneuropathy associated with type 2 diabetes mellitus: Code(s): E11.42 - Type 2 diabetes mellitus with diabetic polyneuropathy Plan: Personal Continuous Glucose Monitor: patient did not bring, CGM reader or glucose meter to today's visit patient reports she has not been testing her blood sugar since she left her Mariana reader in [place]. reports she is planning on contacting family see if they can send to her. patient also reports she has been having neuropathy mainly in right foot. She believes uses led to a series of falls at home. discussed patient how better blood sugar control can lead to less neuropathy pain. patient also reports she has stopped going to bariatric clinic she felt diet was too restrictive. last A1c drawn on 11/10 3 9.5% patient has upcoming appointment on 03/22/[address] Pride Patient is currently taking Mounjaro 5 mg, because pharmacy is unable to get 7 mg dose encourage patient to stay current dose until she can get higher dose filled at pharmacy Patient Instructions: follow-up with Diabetes Education nurse in 2 months Coding Level of Care Code Est Pt Level 1 (22380) Diagnoses Diabetic polyneuropathy associated with type 2 diabetes mellitus E11.42
== END 2023-02-19 13:44 | disposition home or self-care (01) ==
PROVIDERS: PCP Internal Medicine; Visit Provider Registered Nurse Diabetes Educator
DX: E11.42 Type 2 diabetes mellitus with diabetic polyneuropathy (principal)

== ENCOUNTER → 2023-02-19 12:55 | Outpatient (BNVA) | payer MEDICARE, SELFPAY | PROVIDERS: PCP Internal Medicine; Visit Provider Registered Nurse Diabetes Educator | DX: E11.42 Type 2 diabetes mellitus with diabetic polyneuropathy (principal) | CPT/HCPCS: 99211 ==

== ENCOUNTER 2023-03-22 11:23 | Outpatient (AMB) | payer OTHER, MEDICAID, SELFPAY ==
--- NOTE | 2023-03-22 11:24 | MHC.OFFVIS ---
Intake Vital Signs 03/22/23 11:25 Height 5 ft 4 in Weight 250 lb 10.649 oz BMI 43.0 BP 130/84 Blood Pressure Location Lt brachial Position Sitting Pulse 93 Pulse Source Pulse Oximeter Intake Visit Reasons: f/u Type 2 DM/lvm Intake Note: Patient present today to follow up on Type 2 Diabetes Mellitus. 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 Accompanied by: Self / Same As Patient Allergies No Known Allergies Allergy (Verified 03/22/23 11:31) Medication List - Last Reconciled 03/22/23 by Adal Pride MD atorvastatin 80 mg PO BEDTIME 90 days blood sugar diagnostic (FreeStyle Lite Strips) As directed 4 times a day - Dx: 03.07 - DIABETES flash glucose sensor (FreeStyle Mariana 2 Sensor kit) As directed every 2 weeks gabapentin 100 mg PO TID 30 days Humalog KwikPen Insulin (insulin lispro) 22 units (0.22 mL) subcut TID NS insulin glargine U-300 conc (Toujeo SoloStar U-300 Insulin) 73 units (0.2433 mL) subcut DAILY lisinopril 5 mg PO DAILY metformin ER 500 mg PO BID 30 days mometasone 0.1% 1 appl topical DAILY PRN mupirocin 2% 1 appl topical TID 10 days nortriptyline 10 mg PO BEDTIME 30 days pen needle, diabetic (BD Katie 2nd Gen Pen Needle) inject Rx as directed up to 5 times a day [ROLLATOR As directed] tirzepatide (Mounjaro) 5 mg subcut QWEEK HPI HPI Comments History of Present Illness Details 62 yo female today for follow-up visit, for diabetes management Glucometer download shows she is checking her blood sugars sporadically. There is 6 glucometer readings in the glucometer range from 48-237 She has DM type 2 diagnosed more than 7 years. She is Currently on Toujeo 73 units in the morning, Humalog 22 units with breakfast and lunch and 22 units with dinner. . Did not Humalog for 2 days , Metformin ER 500 mg bid, Mounjaro 5 mg . Having problems getting the 5 mg dose Complications: no retinopathy, nephropathy, + neuropathy, no CVA, CAD, PVD. Last ophthalmology evaluation: 11/2022 no retinopathy Negative nocturia, polydipsia, denies dysuria, numbness, tingling, blurred vision , denies nausea, vomiting , diarrhea. She has been gaining weight. Laboratory Tests 06/16/19 06/20/19 10/06/19 14:05 23:38 08:45 Hgb Hct Sodium Potassium Creatinine Estimated GFR Random Glucose 254 H Fasting Glucose Hgb A1c Fingerstic k 14.0 Hemoglobin A1c % Calcium AST ALT Albumin Triglycerides Cholesterol LDL Cholesterol Di rect 74 LDL Cholesterol, C alc HDL Cholesterol TSH Urine Creatinine Urine Microalbumin Microalb/Creat Rat io 06/22/20 06/22/20 06/22/20 10:15 10:20 10:20 Hgb 13.2 Hct 40.9 Sodium 136 Potassium 5.3 H Creatinine 1.24 Estimated GFR 45 Random Glucose Fasting Glucose 373 H* Hgb A1c Fingerstic k Hemoglobin A1c % Calcium 8.8 AST 7 ALT 9 Albumin 3.7 Triglycerides 180 Cholesterol 186 LDL Cholesterol Di rect LDL Cholesterol, C alc 119 HDL Cholesterol 31 TSH 1.63 Urine Creatinine 70.19 Urine Microalbumin 17.0 Microalb/Creat Rat io 24.2 06/22/20 10:20 Hgb Hct Sodium Potassium Creatinine Estimated GFR Random Glucose Fasting Glucose Hgb A1c Fingerstic k Hemoglobin A1c % > 14.0 Calcium AST ALT Albumin Triglycerides Cholesterol LDL Cholesterol Di rect LDL Cholesterol, C alc HDL Cholesterol TSH Urine Creatinine Urine Microalbumin Microalb/Creat Rat io [facility] Medical History Benign essential hypertension Chronic kidney disease, stage III (moderate) Diabetes type 2, uncontrolled Diabetic polyneuropathy associated with type 2 diabetes mellitus Dyslipidemia GERD without esophagitis alf (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 Morbid obesity with BMI of 45.0-49.9, adult Pure hypercholesterolemia Smoker Type 2 diabetes mellitus with diabetic chronic kidney disease Ulcer of right ankle Urinary incontinence Varicose 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 Surgical History Hx of section Hx of umbilical hernia repair Hx of vascular surgery Status post phlebectomy Family History Father CVA (cerebral vascular accident) Heart disease Mother Lung disease Son ADHD Other Mental health problem Social History Household Members: Family Housing: House Alcohol intake: never Patient Tobacco Use Status: Current everyday Tobacco user Cigarettes Per Day: 5 e-Cigarette/Vaping Use: Never Used Second Hand Smoke Exposure: Yes service: No Current occupational status: unemployed Cognitive needs: No Hearing needs: No Vision needs: No Physical Exam Vital Signs: Last Vital Signs Pulse 93 03/22/23 11:25 BP 130/84 03/22/23 11:25 BMI result Body Mass Index 43.0 Absence of Cushingoid features. Absence of acromegalic features. Neck exam reveals nl size thyroid about 15 gms. No thyroid nodules palpable. No carotid bruits present. Lungs CTA. Heart S1 S2, Reg R/R. No M/R/ G. Skin exam reveals absence of vitiligo or acanthosis nigricans. Abdominal exam reveals Soft NT/ND with NA BS. No organomegaly present. Neck Other: . Extrem Other: Visual exam of foot performed. No ulcerations or open lesions. No onchomycosis, no callouses.Pulses 2 + distally Sensation intact to monofilament exam. Vibratory sensation sense is decreased with 128 Hz tuning fork Results AMB Hemoglobin A1c AMB Hemoglobin A1c 10.7 % Last Edit by Lilliana Khan on 03/22/23 11:44 Results Reviewed Results Reviewed: Laboratory Last Values Glucose (Clinic) 151 mg/dL (60-115) H 03/22/23 11:34 Assessment & Plan Assessment & Plan (1) Diabetes type 2, uncontrolled: Code(s): E11.65 - Type 2 diabetes mellitus with hyperglycemia Qualifiers: Glycemic state: with hyperglycemia Qualified Code(s): E11.65 - Type 2 diabetes mellitus with hyperglycemia Plan: This is a 60-year-old white female with a history of type 2 diabetes being treated with metformin, Mounjaro? and basal-bolus insulin with poor glycemic control and known microvascular complications namely neuropathy and microalbuminuria.? The plan is to have the patient resume Mariana sensor. Cannot make any adjustments to the insulin regimen because of lack of data. Went over the relationship poor glycemic control to development progression of complications with the patient . Will have patient take 2.5 mg Mounjaro temporarily if can not get the 5 mg (2) Dyslipidemia: Code(s): E78.5 - Hyperlipidemia, unspecified Plan: On atorvastatin 80 mg. Await repeat lipid profile Orders: Orders AMB Hemoglobin A1c Today E11.65 - Type 2 diabetes mellitus with hyperglycemia Medications: New tirzepatide (Mounjaro) 2.5 mg (0.5 mL) subcut QWEEK 4 weeks 2 mL 4RF Coding Level of Care Code Est Pt Level 4 (48773) Diagnoses Uncontrolled type 2 diabetes mellitus with hyperglycemia E11.65 Glycemic state: with hyperglycemia Dyslipidemia E78.5
[2023-03-22 11:25] VITALS: BP 130/84; PULSE 93; BMI 43.0
[2023-03-22 11:38] LABS: Glucose, Whole Blood 151 mg/dL (60-115)
== END 2023-03-22 11:56 | disposition home or self-care (01) ==
PROVIDERS: PCP Internal Medicine; Visit Provider Internal Medicine Endocrinology, Diabetes & Metabolism
DX: E11.65 Type 2 diabetes mellitus with hyperglycemia (principal); E78.5 Hyperlipidemia, unspecified
CPT/HCPCS: 99214

== ENCOUNTER → 2023-03-22 11:23 | Outpatient (BNVA) | payer OTHER, MEDICAID, SELFPAY | PROVIDERS: PCP Internal Medicine; Visit Provider Internal Medicine Endocrinology, Diabetes & Metabolism | DX: E11.65 Type 2 diabetes mellitus with hyperglycemia (principal); E78.5 Hyperlipidemia, unspecified; Z79.4 Long term (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; Z79.899 Other long term (current) drug therapy | CPT/HCPCS: 82947; 83036 ==

== ENCOUNTER 2023-05-31 14:29 | Outpatient (AMB) | payer OTHER, MEDICAID, SELFPAY ==
--- NOTE | 2023-05-31 14:52 | A.OFFVIS_ITS ---
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 Accompanied by: Self / Same As Patient Allergies No Known Allergies Allergy (Verified 03/22/23 11:31) HPI Comprehensive Diabetes Asmnt Most Recent Diabetes Results: Microalb/Creat Ratio TNP 09/17/22 Cholesterol TNP 09/17/22 HDL Cholesterol TNP 09/17/22 Triglycerides TNP 09/17/22 Creatinine TNP 09/17/22 Blood Urea Nitrogen TNP 09/17/22 Sodium TNP 09/17/22 Potassium TNP 09/17/22 Chloride TNP 09/17/22 Carbon Dioxide TNP 09/17/22 Calcium TNP 09/17/22 AST TNP 09/17/22 ALT TNP 09/17/22 Total Protein TNP 09/17/22 Albumin TNP 09/17/22 PFSH Medical History Benign essential hypertension Chronic kidney disease, stage III (moderate) Diabetes type 2, uncontrolled Diabetic polyneuropathy associated with type 2 diabetes mellitus Dyslipidemia GERD without esophagitis 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 Morbid obesity with BMI of 45.0-49.9, adult Pure hypercholesterolemia Smoker Type 2 diabetes mellitus with diabetic chronic kidney disease Ulcer of right ankle Urinary incontinence Varicose 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 Surgical History Hx of section Hx of umbilical hernia repair Hx of vascular surgery Status post phlebectomy Family History Father CVA (cerebral vascular accident) Heart disease Mother Lung disease Son ADHD Other Mental health problem Social History Household Members: Family Housing: House Alcohol intake: never Patient Tobacco Use Status: Current everyday Tobacco user Cigarettes Per Day: 5 e-Cigarette/Vaping Use: Never Used Second Hand Smoke Exposure: Yes service: No Current occupational status: unemployed Cognitive needs: No Hearing needs: No Vision needs: No Assessment & Plan Assessment & Plan (1) Diabetic polyneuropathy associated with type 2 diabetes mellitus: Code(s): E11.42 - Type 2 diabetes mellitus with diabetic polyneuropathy Plan: Personal Continuous Glucose Monitor: Patients CGM information reviewed Reviewed patient's sensor data: Hypoglycemia: ? 0% Hyperglycemia:? 81% Time in Range:?19% Average glucose for the last 2 weeks?228 mg/dL Patient only has only has 34% time CGM active, instructed patient she needs to scan sensor every 4-6 hours awake in order to capture all sensor data Patient requested prescription for Mariana 2 sensors to be sent to [facility], prescription request sent to Dr. Pride Patient has been unable to get Mounjaro 5 mg, she has been taking 2 Mounjaro 2.5 mg to injections together, then skipping a week and taking another 2 injections. Called [facility] on [facility] in [facility], pharmacy reports that they are able to get Mounjaro 5 mg Request sent to Dr. Pride to send her prescription to [facility] Patient's last A1c was 10.7% in March 2023. It explained to patient A1c is well above target if she can start on higher dose of Mounjaro then in 6 weeks we will review glucose if she needs to increase Mounjaro to 7 mg weekly we will send new script Reminded patient that to check finger sticks if symptoms do not match sensor reading. Discussed lag time between finger stick and sensor data.? Patient able to insert sensor independently at home without issue.? Patient Instructions: Patient will scan sensor every 4-6 hours while awake Patient will follow-up with Diabetes Education nurse in 6 weeks Coding Level of Care Code Est Pt Level 1 (52315) Diagnoses Diabetic polyneuropathy associated with type 2 diabetes mellitus E11.42
== END 2023-05-31 14:58 | disposition home or self-care (01) ==
PROVIDERS: PCP Internal Medicine; Visit Provider Registered Nurse Diabetes Educator
DX: E11.42 Type 2 diabetes mellitus with diabetic polyneuropathy (principal)

== ENCOUNTER → 2023-05-31 14:29 | Outpatient (BNVA) | payer OTHER, MEDICAID, SELFPAY | PROVIDERS: PCP Internal Medicine; Visit Provider Registered Nurse Diabetes Educator | DX: E11.42 Type 2 diabetes mellitus with diabetic polyneuropathy (principal) | CPT/HCPCS: 99211 ==

== ENCOUNTER 2023-07-17 14:18 | Outpatient (AMB) | payer MEDICARE, MEDICAID, SELFPAY ==
--- NOTE | 2023-07-17 14:44 | A.OFFVIS_ITS ---
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 Accompanied by: Self / Same As Patient Allergies No Known Allergies Allergy (Verified 03/22/23 11:31) HPI Comprehensive Diabetes Asmnt Most Recent Diabetes Results: Microalb/Creat Ratio TNP 09/17/22 Cholesterol TNP 09/17/22 HDL Cholesterol TNP 09/17/22 Triglycerides TNP 09/17/22 Creatinine TNP 09/17/22 Blood Urea Nitrogen TNP 09/17/22 Sodium TNP 09/17/22 Potassium TNP 09/17/22 Chloride TNP 09/17/22 Carbon Dioxide TNP 09/17/22 Calcium TNP 09/17/22 AST TNP 09/17/22 ALT TNP 09/17/22 Total Protein TNP 09/17/22 Albumin TNP 09/17/22 PFSH Medical History Benign essential hypertension Chronic kidney disease, stage III (moderate) Diabetes type 2, uncontrolled Diabetic polyneuropathy associated with type 2 diabetes mellitus Dyslipidemia GERD without esophagitis senior living (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 Morbid obesity with BMI of 45.0-49.9, adult Pure hypercholesterolemia Smoker Type 2 diabetes mellitus with diabetic chronic kidney disease Ulcer of right ankle Urinary incontinence Varicose 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 Surgical History Hx of section Hx of umbilical hernia repair Hx of vascular surgery Status post phlebectomy Family History Father CVA (cerebral vascular accident) Heart disease Mother Lung disease Son ADHD Other Mental health problem Social History Household Members: Family Housing: House Alcohol intake: never Patient Tobacco Use Status: Current everyday Tobacco user Cigarettes Per Day: 5 e-Cigarette/Vaping Use: Never Used Second Hand Smoke Exposure: Yes service: No Current occupational status: unemployed Cognitive needs: No Hearing needs: No Vision needs: No Assessment & Plan Assessment & Plan (1) Diabetic polyneuropathy associated with type 2 diabetes mellitus: Code(s): E11.42 - Type 2 diabetes mellitus with diabetic polyneuropathy Plan: Personal Continuous Glucose Monitor: Patients CGM information reviewed Reviewed patient's sensor data: Hypoglycemia: ? 0% Hyperglycemia:49%? Time in Range:?51% Average glucose for the last 2 weeks?192 mg/dL, this is an improvement from her last visit on 05/31/2023 where her average glucose was 228 mg/dL Patient also reports weight has gone from 253 lb use to 241 lbs Although she has not had episodes of hypoglycemia, her glucose is following overnight. Recommended to patient to reduce Toujeo from 73 units to 64 units In addition if patient's glucose before meals is less than 120 mg/dL, it is okay to reduce Humalog dose. Try not to skip Humalog altogether before meals as this can lead to postprandial hyperglycemia Recommended to patient to increase Mounjaro from 5 mg to 7.5 mg weekly Instructed patient to contact clinic if she has an increase in hypoglycemia Patient also has follow-up appointment with Dr. Pride on 07/31/2023, at that appointment she will have her next A1c drawn Reviewed how to interpret trend arrows Reminded patient that to check finger sticks if symptoms do not match sensor reading. Discussed lag time between finger stick and sensor data.? Patient able to insert sensor independently at home without issue.? Patient Instructions: Decrease Toujeo 73 units to 64 units If your glucose is below 120mg/dL take Novolog 11 units If you have an increase in glucose under 70 mg/dL contact clinic follow up with diabetes education in 3 month Coding Level of Care Code Est Pt Level 1 (03472) Diagnoses Diabetic polyneuropathy associated with type 2 diabetes mellitus E11.42
== END 2023-07-17 15:00 | disposition home or self-care (01) ==
PROVIDERS: PCP Internal Medicine; Visit Provider Registered Nurse Diabetes Educator
DX: E11.42 Type 2 diabetes mellitus with diabetic polyneuropathy (principal)

== ENCOUNTER → 2023-07-17 14:18 | Outpatient (BNVA) | payer MEDICARE, MEDICAID, SELFPAY | PROVIDERS: PCP Internal Medicine; Visit Provider Registered Nurse Diabetes Educator | DX: E11.42 Type 2 diabetes mellitus with diabetic polyneuropathy (principal) | CPT/HCPCS: 99211 ==

== ENCOUNTER 2023-07-23 12:21 | Outpatient (REF) | payer MEDICARE, MEDICAID, SELFPAY ==
--- NOTE | ~2023-07-23 | MM_ITS ---
EXAMINATION: MM SCREENING DIGITAL BREAST TOMOSYNTHESIS, BILATERAL CLINICAL INFORMATION: Screening. Asymptomatic. COMPARISON: Mammography: This study is compared with prior exams dating back to 2017. TECHNIQUE: Digital breast tomosynthesis is performed in both the craniocaudal and mediolateral oblique views along with computer-aided detection (CAD). Synthesized 2D images are generated from the tomosynthesis. FINDINGS: The breasts are almost entirely fatty (ACR BI-RADS breast composition Category a). There are no significant masses, abnormal calcifications, or other abnormalities. MM/MM tomosynthesis screening BI IMPRESSION: No mammographic evidence of malignancy. ASSESSMENT: BI-RADS BI-RADS 1 - Negative RECOMMENDATION: Routine annual mammography screening. 1 year F/U This examination should not preclude the clinical evaluation of a suspicious palpable abnormality. This patient's information was entered into a reminder system with a target due date for their next mammogram.
== END 2023-07-23 12:22 | disposition home or self-care (01) ==
LOC: HO.MAMMO 12:21
PROVIDERS: PCP Internal Medicine; Visit Provider Internal Medicine
DX: Z12.31 Encounter for screening mammogram for malignant neoplasm of breast (principal)
CPT/HCPCS: 77063; 77067

== ENCOUNTER → 2023-07-23 12:30 | Outpatient (BNV) | payer MEDICARE, MEDICAID, SELFPAY | PROVIDERS: PCP Internal Medicine; Visit Provider Radiology Diagnostic Radiology | DX: Z12.31 Encounter for screening mammogram for malignant neoplasm of breast (principal) | CPT/HCPCS: 77063; 77067 ==

== ENCOUNTER 2023-07-31 14:00 | Outpatient (AMB) | payer MEDICARE, MEDICAID, SELFPAY ==
--- NOTE | 2023-07-31 14:02 | A.OFFVIS_ITS ---
Intake Vital Signs 07/31/23 14:06 Height 5 ft 4 in Weight 245 lb 5.992 oz BMI 42.1 BP 137/80 Blood Pressure Location Lt brachial Position Sitting Pulse 95 Pulse Source Pulse Oximeter Intake Visit Reasons: dm-confirmed Intake Note: Patient present today to follow up on Type 2 Diabetes Mellitus. 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 Accompanied by: Self / Same As Patient Allergies No Known Allergies Allergy (Verified 07/31/23 14:08) Medication List - Last Reconciled 07/31/23 by Adal Pride MD atorvastatin 80 mg PO BEDTIME 90 days blood sugar diagnostic (FreeStyle Lite Strips) As directed 4 times a day - Dx: 03.07 - DIABETES flash glucose sensor (FreeStyle Mariana 2 Sensor kit) As directed every 2 weeks gabapentin 100 mg PO TID 30 days insulin glargine U-300 conc (Toujeo SoloStar U-300 Insulin) 73 units (0.2433 mL) subcut DAILY lisinopril 5 mg PO DAILY metformin ER 500 mg PO BID 30 days mometasone 0.1% 1 appl topical DAILY PRN mupirocin 2% 1 appl topical TID 10 days Novolog FlexPen U-100 Insulin (insulin aspart U-100) 22 units (0.22 mL) subcut TID NS pen needle, diabetic (BD Katie 2nd Gen Pen Needle) inject Rx as directed up to 5 times a day [ROLLATOR As directed] tirzepatide (Mounjaro) 7.5 mg (0.5 mL) subcut QWEEK HPI HPI Comments History of Present Illness Details 62 yo female today for follow-up visit, for diabetes management Mariana download shows she is wearing the sensor 46% of the time. Average glucose is 138. 91% in target with 9% hyperglycemia no hypoglycemia. Patient is only scanning in the early a.m. hours She has DM type 2 diagnosed more than 7 years. She is Currently on Toujeo 64 units in the morning, Humalog 22 units with breakfast and lunch and 22 units with dinner. . Did not Humalog for 2 days , Metformin ER 500 mg bid, Mounjaro 5 mg . Has hypoglycemia after dinner Complications: no retinopathy, nephropathy, + neuropathy, no CVA, CAD, PVD. Last ophthalmology evaluation: 11/2022 no retinopathy Negative nocturia, polydipsia, denies dysuria, numbness, tingling, blurred vision , denies nausea, vomiting , diarrhea. She has been gaining weight. Laboratory Tests 06/16/19 06/20/19 10/06/19 14:05 23:38 08:45 Hgb Hct Sodium Potassium Creatinine Estimated GFR Random Glucose 254 H Fasting Glucose Hgb A1c Fingerstic k 14.0 Hemoglobin A1c % Calcium AST ALT Albumin Triglycerides Cholesterol LDL Cholesterol Di rect 74 LDL Cholesterol, C alc HDL Cholesterol TSH Urine Creatinine Urine Microalbumin Microalb/Creat Rat io 06/22/20 06/22/20 06/22/20 10:15 10:20 10:20 Hgb 13.2 Hct 40.9 Sodium 136 Potassium 5.3 H Creatinine 1.24 Estimated GFR 45 Random Glucose Fasting Glucose 373 H* Hgb A1c Fingerstic k Hemoglobin A1c % Calcium 8.8 AST 7 ALT 9 Albumin 3.7 Triglycerides 180 Cholesterol 186 LDL Cholesterol Di rect LDL Cholesterol, C alc 119 HDL Cholesterol 31 TSH 1.63 Urine Creatinine 70.19 Urine Microalbumin 17.0 Microalb/Creat Rat io 24.2 06/22/20 10:20 Hgb Hct Sodium Potassium Creatinine Estimated GFR Random Glucose Fasting Glucose Hgb A1c Fingerstic k Hemoglobin A1c % > 14.0 Calcium AST ALT Albumin Triglycerides Cholesterol LDL Cholesterol Di rect LDL Cholesterol, C alc HDL Cholesterol TSH Urine Creatinine Urine Microalbumin Microalb/Creat Rat io [facility] Medical History Benign essential hypertension Chronic kidney disease, stage III (moderate) Diabetes type 2, uncontrolled Diabetic polyneuropathy associated with type 2 diabetes mellitus Dyslipidemia GERD without esophagitis detention (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 Morbid obesity with BMI of 45.0-49.9, adult Pure hypercholesterolemia Smoker Type 2 diabetes mellitus with diabetic chronic kidney disease Ulcer of right ankle Urinary incontinence Varicose 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 Surgical History Hx of section Hx of umbilical hernia repair Hx of vascular surgery Status post phlebectomy Family History Father CVA (cerebral vascular accident) Heart disease Mother Lung disease Son ADHD Other Mental health problem Social History Household Members: Family Housing: House Alcohol intake: never Patient Tobacco Use Status: Current everyday Tobacco user Cigarettes Per Day: 5 e-Cigarette/Vaping Use: Never Used Second Hand Smoke Exposure: Yes service: No Current occupational status: unemployed Cognitive needs: No Hearing needs: No Vision needs: No Physical Exam Vital Signs: Last Vital Signs Pulse 95 07/31/23 14:06 BP 137/80 07/31/23 14:06 BMI result Body Mass Index 42.1 Results AMB Hemoglobin A1c AMB Hemoglobin A1c 8.2 % Last Edit by ELIZABETH Nova on 07/31/23 14:26 Results Reviewed Results Reviewed: Laboratory Last Values Glucose (Clinic) 109 mg/dL (60-115) 07/31/23 14:10 Assessment & Plan Assessment & Plan (1) Diabetes type 2, uncontrolled: Code(s): E11.65 - Type 2 diabetes mellitus with hyperglycemia Qualifiers: Glycemic state: with hyperglycemia Qualified Code(s): E11.65 - Type 2 diabetes mellitus with hyperglycemia Plan: This is a 63-year-old white female with a history of type 2 diabetes being treated with metformin, Mounjaro? and basal-bolus insulin with poor glycemic control and known microvascular complications namely neuropathy and microalbuminuria.? The plan is to have scan with the Mariana more frequently. We will attempt to get a Mariana 3. l will decrease Humalog to 18 units pre-dinner . F/u with CDE. When Mounjaro 7.5 mg available will increase dose . Will check lipid profile microalbumin to creatinine ratio (2) Dyslipidemia: Code(s): E78.5 - Hyperlipidemia, unspecified Plan: On atorvastatin 80 mg. Await repeat lipid profile Orders: Orders Lipid Panel Today E78.00 - Pure hypercholesterolemia, unspecified Microalbumin, Random (w Creat) Today E11.9 - Type 2 diabetes mellitus without complications AMB Hemoglobin A1c Today E11.65 - Type 2 diabetes mellitus with hyperglycemia, Z13.9 - Encounter for screening, unspecified Medications: New 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 sensor (FreeStyle Mariana 3 Sensor device) As directed change every 14 days 2 ea 4RF 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 meter,continuous (FreeStyle Mariana 3 [place]) As directed 1 ea 0RF Discontinued flash glucose sensor (FreeStyle Mariana 2 Sensor kit) Discontinued Reason: Doctor's Order As directed every 2 weeks 2 ea 11RF E11.22 - Type 2 diabetes mellitus with diabetic chronic kidney disease, N18.2 - Chronic kidney disease, stage 2 (mild), Z79.4 - detention (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 Coding Level of Care Code Est Pt Level 4 (80269) Diagnoses Uncontrolled type 2 diabetes mellitus with hyperglycemia E11.65 Glycemic state: with hyperglycemia Dyslipidemia E78.5
[2023-07-31 14:06] VITALS: BP 137/80; PULSE 95; BMI 42.1
[2023-07-31 14:15] LABS: Glucose, Whole Blood 109 mg/dL (60-115)
== END 2023-07-31 14:38 | disposition home or self-care (01) ==
PROVIDERS: PCP Internal Medicine; Visit Provider Internal Medicine Endocrinology, Diabetes & Metabolism
DX: E11.65 Type 2 diabetes mellitus with hyperglycemia (principal); E78.5 Hyperlipidemia, unspecified; Z13.9 Encounter for screening, unspecified
CPT/HCPCS: 99214

== ENCOUNTER → 2023-07-31 14:00 | Outpatient (BNVA) | payer MEDICARE, MEDICAID, SELFPAY | PROVIDERS: PCP Internal Medicine; Visit Provider Internal Medicine Endocrinology, Diabetes & Metabolism | DX: E11.65 Type 2 diabetes mellitus with hyperglycemia (principal); E11.22 Type 2 diabetes mellitus with diabetic chronic kidney disease; N18.2 Chronic kidney disease, stage 2 (mild); E78.5 Hyperlipidemia, unspecified; Z79.4 Long term (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; Z79.899 Other long term (current) drug therapy | CPT/HCPCS: 82947; 83036 ==

== ENCOUNTER 2023-12-07 14:50 | Outpatient (AMB) | payer MEDICARE, MEDICAID, SELFPAY ==
--- NOTE | 2023-12-07 14:55 | MHC.OFFVIS ---
Vital Signs 12/07/23 14:57 Height 5 ft 4 in Weight 240 lb 4.862 oz BMI 41.2 BP 122/84 Blood Pressure Location Rt brachial Position Sitting Pulse 100 Pulse Source Pulse Oximeter Intake Visit Reasons: DM Intake Note: Patient presents today for D2MT follow up visit. 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 Accompanied by: Self / Same As Patient Allergies No Known Allergies Allergy (Verified 07/31/23 14:08) Medication List - Last Reconciled 12/07/23 by Jade Brandon PA-C atorvastatin 80 mg PO BEDTIME 90 days blood sugar diagnostic (FreeStyle Lite Strips) As directed 4 times a day - Dx: 03.07 - DIABETES 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 meter,continuous (FreeStyle Mariana 3 Blacklick) As directed 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 sensor (FreeStyle Mariana 3 Sensor device) As directed change every 14 days gabapentin 100 mg PO TID 30 days insulin aspart U-100 (Novolog FlexPen U-100 Insulin aspart) 20 units subcut TID insulin glargine U-300 conc (Toujeo SoloStar U-300 Insulin) 64 units subcut DAILY lisinopril 5 mg PO DAILY metformin ER 500 mg PO BID 30 days mometasone 0.1% 1 appl topical DAILY PRN mupirocin 2% 1 appl topical TID 10 days pen needle, diabetic (BD Katie 2nd Gen Pen Needle) inject Rx as directed up to 5 times a day [ROLLATOR As directed] tirzepatide (Mounjaro) 7.5 mg (0.5 mL) subcut QWEEK HPI HPI DM: Details: Patient is a 63-year-old female with a significant past medical history morbid obesity, hypertension, hyperlipidemia, chronic kidney disease and type 2 diabetes presenting today for a follow-up regarding her diabetes. Endo: Last saw Dr. Pride in July. Her A1c today is 7.1. She reduced from 8.2. She is currently on Toujeo 64 units, NovoLog 22 units t.i.d., metformin 500 mg twice a day, and mounjaro 7.5 q weekly cgm-usage 76%, average glucose 113, GMI 6%, variability 23. 98% in target, 2% hyperglycemic. No hypoglycemia hypoglycemia- rare, corrects with candy or glucose tabs. follows rule of 15s -it has been low a couple times overnight around 60-70. She states this has only happened a few times since August. CV: Blood pressure today in the office is 122/84. She is currently on lisinopril 5 mg. Cholesterol is controlled with atorvastatin 80 mg. 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 Morbid obesity with BMI of 45.0-49.9, adult Pure hypercholesterolemia Smoker Type 2 diabetes mellitus with diabetic chronic kidney disease Ulcer of right ankle Urinary incontinence Varicose 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 Surgical History Hx of section Hx of umbilical hernia repair Hx of vascular surgery Status post phlebectomy Family History Father CVA (cerebral vascular accident) Heart disease Mother Lung disease Son ADHD Other Mental health problem Social History Household Members: Family Housing: House Alcohol intake: never Patient Tobacco Use Status: Current everyday Tobacco user Cigarettes Per Day: 5 e-Cigarette/Vaping Use: Never Used Second Hand Smoke Exposure: Yes service: No Current occupational status: unemployed Cognitive needs: No Hearing needs: No Vision needs: No Physical Exam Vital Signs: Last Vital Signs Pulse 100 12/07/23 14:57 BP 122/84 12/07/23 14:57 BMI result Body Mass Index 41.2 Const Orientation/consciousness: patient oriented x3 Neck Neck: Yes no lymphadenopathy Thyroid: Thyroid normal Carotids: no bruits Resp Auscultation: clear to auscultation bilaterally Cardio Rate: regular rate Rhythm: regular rhythm Heart sounds: S1 normal heart sound present and S2 normal heart sound present Peripheral pulses: dorsalis pedis present Neuro General: patient oriented x3, gait normal and no focal motor deficits Extrem Other: Monofilament sensation intact bilaterally. Vibratory sensation intact bilaterally. Skin intact. 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 labs are in the system. a1c improved. 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 continue toujeo, metformin, and mounjaro. does not want to increase dosage right now of mounjaro. will discuss at follow up in 3 months. She will call us if she is still experiencing any low blood sugars and be seen prior to 3 months. encouraged her to continue with diet and weight loss. congratulated on the success. declines referral to housekeeper cleaning cooking. Orders: Orders AMB Hemoglobin A1c Today Jade Brandon PA-C E11.22 - Type 2 diabetes mellitus with diabetic chronic kidney disease, N18.2 - Chronic kidney disease, stage 2 (mild), Z79.4 - FPC (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 Medications: New glucose (Dex4 Glucose) until symptoms of low blood sugar are controlled 16 grams (4 x 4 gram) PO Q15M 30 days PRN 100 tabs 1RF hypoglycemia Jade Brandon PA-C Changed From insulin glargine U-300 conc (Toujeo SoloStar U-300 Insulin) 73 units (0.2433 mL) subcut DAILY 4.5 mL 5RF To insulin glargine U-300 conc (Toujeo SoloStar U-300 Insulin) 64 units subcut DAILY Adal Pride MD From Novolog FlexPen U-100 Insulin (insulin aspart U-100) 22 units (0.22 mL) subcut TID 15 mL 5RF NS To insulin aspart U-100 (Novolog FlexPen U-100 Insulin aspart) 20 units subcut TID Adal Pride MD Coding Level of Care Code Est Pt Level 4 (00425) Diagnoses Type 2 diabetes mellitus with stage 2 chronic kidney disease, with long-term current use of insulin E11.22; N18.2; Z79.4 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
[2023-12-07 14:57] VITALS: BP 122/84; PULSE 100; BMI 41.2
[2023-12-07 15:07] LABS: Glucose, Whole Blood 155 mg/dL (60-115)
== END 2023-12-07 15:25 | disposition home or self-care (01) ==
PROVIDERS: PCP Internal Medicine; Visit Provider Physician Assistant
DX: E11.22 Type 2 diabetes mellitus with diabetic chronic kidney disease (principal); N18.2 Chronic kidney disease, stage 2 (mild); Z79.4 Long term (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
CPT/HCPCS: 99214

== ENCOUNTER → 2023-12-07 14:50 | Outpatient (BNVA) | payer MEDICARE, MEDICAID, SELFPAY | PROVIDERS: PCP Internal Medicine; Visit Provider Physician Assistant | DX: E11.22 Type 2 diabetes mellitus with diabetic chronic kidney disease (principal); N18.2 Chronic kidney disease, stage 2 (mild); Z79.4 Long term (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 | CPT/HCPCS: 82947; 83036; 99212 ==

== ENCOUNTER 2023-12-26 08:53 | Outpatient (AMB) | payer MEDICARE, MEDICAID, SELFPAY ==
[2023-12-26 08:55] VITALS: BP 122/78; PULSE 90; O2SAT 98; BMI 40.3
--- NOTE | 2023-12-26 08:55 | A.OFFPC_ITS ---
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: No Accompanied by: Self / Same As Patient Allergies No Known Allergies Allergy (Verified 12/26/23 09:48) Medication List - Last Reconciled 12/26/23 by Herson Dsouza MD atorvastatin 80 mg PO BEDTIME 90 days blood sugar diagnostic (FreeStyle Lite Strips) As directed 4 times a day - Dx: 03.07 - DIABETES 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 meter,continuous (FreeStyle Mariana 3 Etters) As directed 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 sensor (FreeStyle Mariana 3 Sensor device) As directed change every 14 days gabapentin 100 mg PO TID 30 days glucose (Dex4 Glucose) 16 grams (4 x 4 gram) PO Q15M PRN 30 days insulin aspart U-100 (Novolog FlexPen U-100 Insulin aspart) 20 units subcut TID insulin glargine U-300 conc (Toujeo SoloStar U-300 Insulin) 64 units subcut DAILY lisinopril 5 mg PO DAILY metformin ER 500 mg PO BID 30 days mometasone 0.1% 1 appl topical DAILY PRN mupirocin 2% 1 appl topical TID 10 days pen needle, diabetic (BD Katie 2nd Gen Pen Needle) inject Rx as directed up to 5 times a day [ROLLATOR As directed] tirzepatide (Mounjaro) 7.5 mg (0.5 mL) subcut QWEEK Tobacco use date assessed: 12/26/23 Dental Screening Dental Screen Date: 12/26/23 Did you have a dental visit in the last 12 months?: No Did you have a dental problem in the last 6 months where you did not have access to dental care?: No Was dental information given to patient?: Patient has dentist HPI Annual PE HPI Details Patient comes in today for her annual physical examination - she was last seen by me in September 2022 States that she has been following up with 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 over the past year and has been concentrating on getting her diabetes under control and is glad that it is now - states that she has been feeling well for a while now States that she has a follow up appointment scheduled already with her eye doctor in a couple of months for her eye exam She denies any headaches or dizziness Denies any chest pains, no SOB No nausea/vomiting, no abdominal pain No change in bowel habits noted She denies any acute urinary symptoms She has had no follow up labs done, other than her HgbA1c (which was at 7.1% a couple of weeks ago) and serum glucose level, in over a year and a half now She had her yearly mammogram done a few months ago - mammogram was normal She has not seen her core inserter nor had her year exam and pap smear done in a few years now Recalls that she had a colonoscopy done over at [facility] but that was years ago, likely >10 years now She has never had a bone density done in the past [facility] Medical History (Updated 12/26/23 @ 10:12 by Herson Dsouza MD) Morbid obesity with BMI of 40.0-44.9, adult Chronic kidney disease, stage III (moderate) Diabetic polyneuropathy associated with type 2 diabetes mellitus USP (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 Diabetes type 2, uncontrolled Ulcer of right ankle Urinary incontinence Morbid obesity with BMI of 45.0-49.9, adult Smoker GERD without esophagitis Varicose 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 Benign essential hypertension Pure hypercholesterolemia Type 2 diabetes mellitus with diabetic chronic kidney disease Dyslipidemia Surgical History Status post phlebectomy Hx of vascular surgery Hx of umbilical hernia repair Hx of section Family History Father CVA (cerebral vascular accident) Heart disease Mother Lung disease Son ADHD Other Mental health problem Social History Household Members: Family Housing: House Alcohol intake: never Patient Tobacco Use Status: Current everyday Tobacco user Cigarettes Per Day: 5 e-Cigarette/Vaping Use: Never Used Second Hand Smoke Exposure: Yes service: No Current occupational status: unemployed Cognitive needs: No Hearing needs: No Vision needs: No Questionnaire PHQ-9 Over the last 2 weeks, how often have you been bothered by any of the following problems? 1. Little interest or pleasure in doing things: not at all 2. Feeling down, depressed, or hopeless: not at all 3. Trouble falling or staying asleep, or sleeping too much: not at all 4. Feeling tired or having little energy: not at all 5. Poor appetite or overeating: not at all 6. Feeling bad about yourself - or that you are a failure or have let yourself or your family down: not at all 7. Trouble concentrating on things, such as reading the newspaper or watching television: not at all 8. Moving or speaking so slowly that other people could have noticed. Or the opp osite - being so fidgety or restless that you have been moving around a lot more than usual: not at all 9. Thoughts that you would be better off or of hurting yourself in some way: not at all Total score: 0 Depression Screening Interpretation: Negative Depression Screening Done: Yes 23464 - PHQ-9 Billing: Yes Source: Developed by Drs. Adal Hooks, America Medley, Gamaliel Neely and colleagues, with an educational lilly from [employer]. Thrive Questionnaire Date Thrive assessed: 12/26/23 I am a: Patient What is your living situation today?: I have a steady place to live Within the past 12 months, did the food you bought not last and you didn't have the money to get more?: Never true Within the past 12 months, did you worry whether your food would run out before you got money to buy more?: Never true Do you have trouble paying for medicines?: No Do you have trouble getting transportation to medical appointments?: No Do you have trouble paying your heating and electricity bill?: No Do you have trouble taking care of your child, family member or friend?: No Do you have trouble with day-to-day activities such as bathing, preparing meals, shopping, managing finances, etc.?: I choose not to answer this question Are you currently unemployed and looking for a job?: No Are you interested in more education?: No Please select the resources that you would like help with: None Currently or been in a relationship where the following occur: No concerns reported THRIVE Score: 0 AUDIT C Alcohol Use Questionnaire (AUDIT-C) 1. How often do you have a drink containing alcohol?: Never 3. How often do you have six or more drinks on one occasion?: Never Total Score: 0 Score Reviewed/Action Taken: Yes JOSÉ LUIS-7 AMB Questionnaire JOSÉ LUIS-7 Date JOSÉ LUIS - 7 assessed: 12/26/23 Feeling nervous, anxious, or on edge: 0 = Not at all Not being able to stop or control worryin = Not at all Worrying too much about different things: 0 = Not at all Trouble relaxin = Not at all Being so restless that it is hard to sit still: 0 = Not at all Becoming easily annoyed or irritable: 0 = Not at all Feeling afraid as if something awful might happen: 0 = Not at all Total JOSÉ LUIS-7 score (0-4 normal; 5-9 mild; 10-14 moderate; 15-21 severe): 0 Source: Developed by Drs. Adal Hooks, America Medley, Gamaliel Neely and colleagues, with an educational lilly from [employer]. Review of Systems Const Denies chills, Denies fatigue, Denies fever(s), Denies headache(s) and Denies malaise Eyes Denies blurry vision, Denies change in vision, Denies irritation and Denies itchy eyes ENT Denies dysphagia, Denies dizziness, Denies otalgia, Denies headache(s), Denies nasal congestion, Denies neck pain, Denies odynophagia, Denies sinus pain and Denies sore throat Card Denies chest pain, Denies rapid heart rate, Denies irregular heart rhythm, Denies palpitations and Denies dyspnea Resp Denies chest congestion, Denies cough, Denies dyspnea and Denies wheezing GI Denies abdominal pain, Denies bloating, Denies constipation, Denies dysphagia, Denies heartburn, Denies diarrhea, Denies nausea, Denies odynophagia and Denies vomiting Denies hematuria, Denies urinary frequency, Denies dysuria, Denies urinary incontinence and Denies urinary urgency Musc Denies back pain, Denies arthralgias, Denies joint swelling, Denies muscle weakness and Denies neck pain Skin/Breast Denies breast pain, Denies breast mass, Denies change in pigmentation, Denies lesions, Denies rash and Denies unusual bruising Neuro Denies dizziness, Denies headache(s) and Denies paresthesias Psych Denies anxiety and Denies depression Endo Denies fatigue and Denies palpitations Ethan/Lymph Denies easy bruising Aller/Immun Denies itchy eyes and Denies wheezing Physical exam (Primary Care) Vital Signs: Last Vital Signs Pulse 90 12/26/23 08:55 BP 122/78 12/26/23 08:55 Pulse Ox 98 12/26/23 08:55 Oxygen Delivery Method Room Air 12/26/23 08:55 BMI result Body Mass Index 40.3 Tobacco/Smoking Status: Tobacco use Status Tobacco use date assessed 12/26/23 12/26/23 08:58 Patient Tobacco Use Status Current everyday Tobacco 12/26/23 08:58 e-Cigarette/Vaping Use Never Used 12/26/23 08:58 PHQ-9: PHQ-9 Score PHQ-9: Total score 0 12/26/23 09:04 Depression Screening Interpretation: Negative Thrive Assessment: Date of Thrive Assessment Date Thrive assessed 12/26/23 12/26/23 08:58 Currently or been in a relationship where the following occur: No concerns reported Const General: no acute distress, alert and awake Orientation/consciousness: patient oriented x3 HENMT Head: Yes normocephalic and Yes atraumatic Ears: external ears normal, TM's normal bilaterally and EAC's normal General nose exam: No nasal discharge present Face and sinus: Yes normal facial exam and Yes sinuses nontender Teeth and gingiva: dentition normal Throat: Yes posterior oropharynx normal and Yes tonsils normal (no TP c ongestion) Eyes Eyelids: Yes eyelids normal Conjunctivae: conjunctivae normal Pupils: Equal, round and reactive pupils present EOM: EOMs intact bilaterally Neck Neck: Yes no lymphadenopathy and Yes supple Thyroid: Thyroid normal Resp Auscultation: clear to auscultation bilaterally, no rales and no wheezes Cardio Rate: regular rate Rhythm: regular rhythm Heart sounds: no murmurs GI Palpation (GI): Soft to palpation, nontender and No hepatosplenomegaly present Auscultation: normal bowel sounds General: Yes no CVA tenderness Back/Spine/Pelvis Back: no CVA tenderness Thoracic/Lumbar Spine: thoracic and lumbar spine normal to inspection Skin Lesions: no lesions Rashes: no rashes Neuro General: patient oriented x3, moves all extremities, no focal motor deficits and CN's II-XI intact bilaterally Cranial nerves: Yes Equal, round and reactive pupils present Cognition (Neuro): normal cognition Gait exam (Neuro): Normal gait present Extrem General: Yes no clubbing, cyanosis or edema Assessment and Plan Assessment & Plan (1) Annual physical exam: Code(s): Z00.00 - Encounter for general adult medical examination without abnormal findings Plan: Check labs She is up-to-date with her breast cancer screening but will need to get all of her other cancer screenings and osteoporosis screening done/updated (2) Type 2 diabetes mellitus with diabetic chronic kidney disease: Code(s): E11.22 - Type 2 diabetes mellitus with diabetic chronic kidney disease Qualifiers: Diabetes mellitus keno terminal operator insulin use: with keno terminal operator use Chronic kidney disease stage: stage 3 (moderate) Chronic kidney disease stage 3 subtype: stage 3a (GFR 45-59) Qualified Code(s): E11.22 - Type 2 diabetes mellitus with diabetic chronic kidney disease; N18.31 - Chronic kidney disease, stage 3a; Z79.4 - termite treater (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 Plan: Her diabetes is now much better controlled since she was last seen by me over a year ago Her HgbA1c was most recently at 7.1% when checked a couple of weeks ago on 12/07/2023, down from 8.2% back in July 2023 and from 9.7% when she was last seen here in September 2022 - goal is < 7.0% Reinforced diabetic diet Continue Metformin ER 500 mg BID, Toujeo 64 units QD, Humalog 20 units TID with meals and Moujaro 7.5 mg once a week 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 She is reportedly scheduled for her annual eye exam in a couple of months (3) Peripheral neuropathy: Code(s): G62.9 - Polyneuropathy, unspecified Qualifiers: Peripheral neuropathy type: polyneuropathy associated with underlying disease Qualified Code(s): G63 - Polyneuropathy in diseases classified elsewhere Plan: This is again most likely due to her diabetes and have reminded her that the only way to keep this from progressing is by tight control of her diabetes Continue Gabapentin 100 mg TID Will consider sending her for EMG and NCV for further evaluation if her symptoms persist despite Rx or get worse (4) Chronic kidney disease, stage III (moderate): Code(s): N18.30 - Chronic kidney disease, stage 3 unspecified Qualifiers: Chronic kidney disease stage 3 subtype: stage 3a (GFR 45-59) Qualified Code(s): N18.31 - Chronic kidney disease, stage 3a Plan: Was stable on her previous labs but she has not had any follow up labs done to check into this in over 15 months now (last done in June 2022) Will send patient for labs GWEN to get this update and will continue to monitor her renal function regularly (5) Pure hypercholesterolemia: Code(s): E78.00 - Pure hypercholesterolemia, unspecified Plan: Reinforced low cholesterol diet She has not had any follow up labs done to check into her cholesterol since June 2022 and have advised her to get her fasting labs done GWEN Continue Atorvastatin 80 mg QD Will recheck her labs and fasting lipids again in 4 months follow-up (6) Benign essential hypertension: Code(s): I10 - Essential (primary) hypertension Plan: Reinforced low-sodium diet - goal is systolic BP of at least 120 to 130 mm or less Continue Lisinopril 5 mg QD (7) GERD without esophagitis: Code(s): K21.9 - Gastro-esophageal reflux disease without esophagitis Plan: Dietary restrictions reinforced (8) Varicose 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: Comment: S/P EVLT and phlebectomy by Dr. Fabricio Streeter, with significant improvement of symptoms Code(s): I83.811 - Varicose 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 Plan: Follow up with vascular surgery as scheduled (9) Dermatitis: Code(s): L30.9 - Dermatitis, unspecified Plan: Continue Mometasone 0.1% cream apply to rash QD PRN (10) Smoker: Code(s): F17.200 - Nicotine dependence, unspecified, uncomplicated Plan: Counseled again on smoking cessation (11) Morbid obesity with BMI of 40.0-44.9, adult: Code(s): E66.01 - Morbid (severe) obesity due to excess calories; Z68.41 - Body mass index [BMI] 40.0-44.9, adult Plan: Reinforced diet/exercise as tolerated/lose weight (12) Osteoporosis screening: Code(s): Z13.820 - Encounter for screening for osteoporosis Plan: Will send patient for BMD for osteoporosis screening - this will be her index scan (13) Cervical cancer screening: Code(s): Z12.4 - Encounter for screening for malignant neoplasm of cervix Plan: She has not see gynecology in a few years now - will refer her back to gynecology to update her annual plate stacker hand exam and pap smear (14) Colon cancer screening: Code(s): Z12.11 - Encounter for screening for malignant neoplasm of colon Plan: She reportedly last had her colonoscopy done at [facility] but this is likely over 10 years ago or more now Will go ahead and refer her to GI for repeat colonoscopy Plan Follow up in 4 months Orders: Orders Comprehensive Kirvin. Panel Fast Today E78.00 - Pure hypercholesterolemia, unspecified, Z00.00 - Encounter for general adult medical examination without abnormal findings Lipid Panel Today E78.00 - Pure hypercholesterolemia, unspecified, Z00.00 - Encounter for general adult medical examination without abnormal findings Microalbumin, Random (w Creat) Today E11.9 - Type 2 diabetes mellitus without complications, Z00.00 - Encounter for general adult medical examination without abnormal findings Vitamin B12 and Folate Today E53.8 - Deficiency of other specified B group vitamins, Z00.00 - Encounter for general adult medical examination without abnormal findings Comprehensive Kirvin. Panel Fast 4 Months E78.00 - Pure hypercholesterolemia, unspecified Microalbumin, Random (w Creat) 4 Months E11.9 - Type 2 diabetes mellitus without complications XR DEXA axial skeleton Today Z78.0 - Asymptomatic menopausal state Complete Blood Count Auto Diff Today D64.9 - Anemia, unspecified, Z00.00 - Encounter for general adult medical examination without abnormal findings TSH reflex Free T4 Today E78.00 - Pure hypercholesterolemia, unspecified, Z00.00 - Encounter for general adult medical examination without abnormal findin gs UA CC w/rflx Micro + Cult Today R30.0 - Dysuria, Z00.00 - Encounter for general adult medical examination without abnormal findings Vitamin D 25-OH Total Today E55.9 - Vitamin D deficiency, unspecified, Z00.00 - Encounter for general adult medical examination without abnormal findings Lipid Panel 4 Months E78.00 - Pure hypercholesterolemia, unspecified Hemoglobin A1c 4 Months E11.9 - Type 2 diabetes mellitus without complications Referrals ORGANIC PREPARATION ANALYST Referral Z12.4 - Encounter for screening for malignant neoplasm of cervix Gastroenterology Referral Z12.11 - Encounter for screening for malignant neoplasm of colon Coding Level of Care Code Est Pt Prev Care 40-64y([id number]) Diagnoses Annual physical exam Z00.00 Type 2 diabetes mellitus with stage 3a chronic kidney disease, with long-term current use of insulin E11.22; N18.31; Z79.4 Diabetes mellitus keno terminal operator insulin use: with keno terminal operator use Chronic kidney disease stage: stage 3 (moderate) Chronic kidney disease stage 3 subtype: stage 3a (GFR 45-59) Polyneuropathy associated with underlying disease G63 Peripheral neuropathy type: polyneuropathy associated with underlying disease Stage 3a chronic kidney disease N18.31 Chronic kidney disease stage 3 subtype: stage 3a (GFR 45-59) Pure hypercholesterolemia E78.00 Benign essential hypertension I10 GERD without esophagitis K21.9 Varicose 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 I83.811 Dermatitis L30.9 Smoker F17.200 Morbid obesity with BMI of 40.0-44.9, adult E66.01; Z68.41 Osteoporosis screening Z13.820 Cervical cancer screening Z12.4 Colon cancer screening Z12.11
== END 2023-12-26 10:04 | disposition home or self-care (01) ==
PROVIDERS: PCP Internal Medicine; Visit Provider Internal Medicine
DX: Z00.00 Encounter for general adult medical examination without abnormal findings (principal); E11.22 Type 2 diabetes mellitus with diabetic chronic kidney disease; N18.31 Chronic kidney disease, stage 3a; Z79.4 Long term (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; E78.00 Pure hypercholesterolemia, unspecified; I10 Essential (primary) hypertension; K21.9 Gastro-esophageal reflux disease without esophagitis; I83.811 Varicose veins of right lower extremity with pain; L30.9 Dermatitis, unspecified; F17.200 Nicotine dependence, unspecified, uncomplicated
CPT/HCPCS: 99396

== ENCOUNTER → 2024-05-23 13:26 | Outpatient (BNVA) | payer MEDICARE, SELFPAY | PROVIDERS: PCP Internal Medicine; Visit Provider Physician Assistant | DX: I12.9 Hypertensive chronic kidney disease with stage 1 through stage 4 chronic kidney disease, or unspecified chronic kidney disease (principal); E11.22 Type 2 diabetes mellitus with diabetic chronic kidney disease; N18.31 Chronic kidney disease, stage 3a; E66.01 Morbid (severe) obesity due to excess calories; Z68.42 Body mass index [BMI] 45.0-49.9, adult; E78.00 Pure hypercholesterolemia, unspecified; Z79.4 Long term (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 | CPT/HCPCS: 82947; 83036; 99212 ==

== ENCOUNTER → 2024-05-23 13:26 | Outpatient (AMB) | payer MEDICARE, SELFPAY ==
[2024-05-23 13:42] LABS: Glucose, Whole Blood 136 mg/dL (60-115)
== END | disposition home or self-care (01) ==
PROVIDERS: PCP Internal Medicine; Visit Provider Physician Assistant

== ENCOUNTER 2024-06-03 13:02 | Outpatient (REF) | payer MEDICARE, SELFPAY | END 2024-06-03 13:03 | disposition home or self-care (01) | LOC: HO.MAMMO 13:02 | PROVIDERS: PCP Internal Medicine; Visit Provider Internal Medicine | DX: Z13.820 Encounter for screening for osteoporosis (principal); Z78.0 Asymptomatic menopausal state | CPT/HCPCS: 77080 ==

== ENCOUNTER → 2024-06-03 13:30 | Outpatient (BNV) | payer MEDICARE, SELFPAY | PROVIDERS: PCP Internal Medicine; Visit Provider Radiology Diagnostic Radiology | DX: E28.39 Other primary ovarian failure (principal) | CPT/HCPCS: 77080 ==

== ENCOUNTER 2024-07-22 15:29 | Outpatient (AMB) | payer OTHER, SELFPAY ==
[2024-07-22 15:42] VITALS: BP 126/88; PULSE 94; O2SAT 97; BMI 40.7
--- NOTE | 2024-07-22 15:42 | MHC.PC.OV ---
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 - DIABETES 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 sensor (FreeStyle Mariana 3 Sensor device) As directed change every 14 days 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 sensor (FreeStyle Mariana 3 Plus Sensor device) Use daily As directed to monitor glucose 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,passenger tire builder,cont (FreeStyle Mariana 3 [place]) As directed gabapentin 100 mg PO TID 30 days glucose (Dex4 Glucose) 16 grams (4 x 4 gram) PO Q15M PRN 30 days insulin glargine U-300 conc (Toujeo SoloStar U-300 Insulin) 64 units (0.2133 mL) subcut DAILY insulin lispro (Humalog KwikPen (U-100) Insulin) 15 units (0.15 mL) subcut TID lisinopril 5 mg PO DAILY metformin ER 500 mg PO BID pen needle, diabetic (BD Katie 2nd Gen Pen Needle) inject Rx as directed up to 5 times a day [ROLLATOR As directed] tirzepatide (Mounjaro) 10 mg (0.5 mL) subcut QWEEK Tobacco use date assessed: 07/22/24 Dental Screening Dental Screen Date: 07/22/24 Did you have a dental visit in the last 12 months?: No Did you have a dental problem in the last 6 months where you did not have access to dental care?: No Was dental information given to patient?: Patient has dentist HPI DM, hyperlipemia HPI Details Patient comes in today for her follow up visit - she was last seen back on 12/26/2023 States that she currently feels okay She continues to follow up with [facility] for her diabetes management and as of 05/23/2024, her HgbA1c was at 9.3% when checked at the 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 office She denies any headaches or dizziness Denies any chest pains, no increased shortness of breath No nausea/vomiting, no abdominal pain No change in bowel habits noted Patient states that she does not need any prescription refills at this time She was not able to get her follow-up labs done prior to her appointment today and has no follow-up labs done since 06/19/3022 - she has been advised to try to go and get these done [facility] She is scheduled for her annual mammogram next week and is scheduled for her annual gynecologic exam and Pap smear at the [facility] next month She also had her bone density test done a couple of months ago and would like to know how this came out [facility] Medical History (Updated 07/23/24 @ 05:34 by Herson Dsouza MD) Osteopenia Morbid obesity with BMI of 40.0-44.9, adult Chronic kidney disease, stage III (moderate) Diabetic polyneuropathy associated with type 2 diabetes mellitus care home (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 Diabetes type 2, uncontrolled Ulcer of right ankle Urinary incontinence Morbid obesity with BMI of 45.0-49.9, adult Smoker GERD without esophagitis Varicose 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 Benign essential hypertension Pure hypercholesterolemia Type 2 diabetes mellitus with diabetic chronic kidney disease Dyslipidemia Surgical History Status post phlebectomy Hx of vascular surgery Hx of umbilical hernia repair Hx of section Family History Father CVA (cerebral vascular accident) Heart disease Mother Lung disease Son ADHD Other Mental health problem Social History Household Members: Family Housing: House Alcohol intake: never Patient Tobacco Use Status: Current everyday Tobacco user Cigarettes Per Day: 5 e-Cigarette/Vaping Use: Never Used Second Hand Smoke Exposure: Yes service: No Current occupational status: unemployed Cognitive needs: No Hearing needs: No Vision needs: No Questionnaire PHQ-9 Over the last 2 weeks, how often have you been bothered by any of the following problems? 1. Little interest or pleasure in doing things: not at all 2. Feeling down, depressed, or hopeless: not at all 3. Trouble falling or staying asleep, or sleeping too much: not at all 4. Feeling tired or having little energy: not at all 5. Poor appetite or overeating: not at all 6. Feeling bad about yourself - or that you are a failure or have let yourself or your family down: not at all 7. Trouble concentrating on things, such as reading the newspaper or watching television: not at all 8. Moving or speaking so slowly that other people could have noticed. Or the opposite - being so fidgety or restless that you have been moving around a lot more than usual: not at all 9. Thoughts that you would be better off or of hurting yourself in some way: not at all Total score: 0 Depression Screening Interpretation: Negative Depression Screening Done: Yes 30727 - PHQ-9 Billing: Yes Source: Developed by Drs. Adal Hooks, America Medley, Gamaliel Neely and colleagues, with an educational lilly from [employer]. Thrive Questionnaire Date Thrive assessed: 07/22/24 I am a: Patient What is your living situation today?: I have a steady place to live Within the past 12 months, did the food you bought not last and you didn't have the money to get more?: Never true Within the past 12 months, did you worry whether your food would run out before you got money to buy more?: Never true Do you have trouble paying for medicines?: No Do you have trouble getting transportation to medical appointments?: No Do you have trouble paying your heating and electricity bill?: No Do you have trouble taking care of your child, family member or friend?: No Do you have trouble with day-to-day activities such as bathing, preparing meals, shopping, managing finances, etc.?: I choose not to answer this question Are you currently unemployed and looking for a job?: No Are you interested in more education?: No Please select the resources that you would like help with: None Currently or been in a relationship where the following occur: No concerns reported THRIVE Score: 0 AUDIT C Alcohol Use Questionnaire (AUDIT-C) 1. How often do you have a drink containing alcohol?: Never 3. How often do you have six or more drinks on one occasion?: Never Total Score: 0 Score Reviewed/Action Taken: Yes JOSÉ LUIS-7 AMB Questionnaire JOSÉ LUIS-7 Date JOSÉ LUIS - 7 assessed: 07/22/24 Feeling nervous, anxious, or on edge: 0 = Not at all Not being able to stop or control worryin = Not at all Worrying too much about different things: 0 = Not at all Trouble relaxin = Not at all Being so restless that it is hard to sit still: 0 = Not at all Becoming easily annoyed or irritable: 0 = Not at all Feeling afraid as if something awful might happen: 0 = Not at all Total JOSÉ LUIS-7 score (0-4 normal; 5-9 mild; 10-14 moderate; 15-21 severe): 0 Source: Developed by Drs. Adal Hooks, America Medley, Gamaliel Neely and colleagues, with an educational lilly from [employer]. Review of Systems Const Denies chills, Denies fatigue, Denies fever(s) and Denies headache(s) ENT Denies dysphagia, Denies dizziness, Denies otalgia, Denies headache(s), Denies neck pain, Denies odynophagia and Denies sore throat Card Denies chest pain, Denies irregular heart rhythm, Denies palpitations and Denies dyspnea Resp Denies chest congestion, Denies cough and Denies dyspnea GI Denies abdominal pain, Denies constipation, Denies dysphagia, Denies heartburn, Denies diarrhea, Denies nausea, Denies odynophagia and Denies vomiting Denies urinary frequency, Denies dysuria and Denies urinary incontinence Musc Denies back pain, Denies arthralgias and Denies neck pain Skin/Breast Denies rash Neuro Denies dizziness, Denies headache(s) and Denies paresthesias Psych Denies anxiety and Denies depression Endo Denies fatigue and Denies palpitations Ethan/Lymph Denies easy bruising Physical exam (Primary Care) Vital Signs: Last Vital Signs Pulse 94 07/22/24 15:42 BP 126/88 07/22/24 15:42 Pulse Ox 97 07/22/24 15:42 Oxygen Delivery Method Room Air 07/22/24 15:42 BMI result Body Mass Index 40.7 Tobacco/Smoking Status: Tobacco use Status Tobacco use date assessed 04/08/25 04/08/25 15:50 Patient Tobacco Use Status Current everyday Tobacco 07/22/24 15:50 e-Cigarette/Vaping Use Never Used 07/22/24 15:50 PHQ-9: PHQ-9 Score PHQ-9: Total score 0 07/22/24 16:18 Depression Screening Interpretation: Negative Thrive Assessment: Date of Thrive Assessment Date Thrive assessed 07/22/24 07/22/24 15:50 Currently or been in a relationship where the following occur: No concerns reported Const General: no acute distress and alert HENMT Ears: TM's normal bilaterally and EAC's normal Throat: Yes posterior oropharynx normal and Yes tonsils normal (no TP congestion) Neck Neck: Yes supple and No lymphadenopathy Thyroid: Thyroid normal Resp Auscultation: clear to auscultation bilaterally, no rales and no wheezes Cardio Rate: regular rate Rhythm: regular rhythm Heart sounds: no murmurs GI Palpation (GI): Soft to palpation and nontender Auscultation: normal bowel sounds General: Yes no CVA tenderness Back/Spine/Pelvis Back: no CVA tenderness Thoracic/Lumbar Spine: No lumbar spinal tenderness Skin Rashes: no rashes Extrem General: Yes no clubbing, cyanosis or edema Coding Level of Care Code Est Pt Level 4 (18648) Complex EM visit Add On G2211 Diagnoses Type 2 diabetes mellitus with stage 3a chronic kidney disease, with long-term current use of insulin E11.22; N18.31; Z79.4 Diabetes mellitus supervisor intermediates insulin use: with [facility] use Chronic kidney disease stage: stage 3 (moderate) Chronic kidney disease stage 3 subtype: stage 3a (GFR 45-59) Polyneuropathy associated with underlying disease G63 Peripheral neuropathy type: polyneuropathy associated with underlying disease Stage 3a chronic kidney disease N18.31 Chronic kidney disease stage 3 subtype: stage 3a (GFR 45-59) Pure hypercholesterolemia E78.00 Benign essential hypertension I10 GERD without esophagitis K21.9 Varicose 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 I83.811 Osteopenia, unspecified location M85.80 Osteopenia location: unspecified Dermatitis L30.9 Smoker F17.200 Morbid obesity with BMI of 40.0-44.9, adult E66.01; Z68.41 Additional Codes PHQ-9 - 47605 - PHQ-9 Billing: Yes ([id number]) Assessment & Plan Assessment & Plan (1) Type 2 diabetes mellitus with diabetic chronic kidney disease: Code(s): E11.22 - Type 2 diabetes mellitus with diabetic chronic kidney disease Category: Medical Qualifiers: Diabetes mellitus supervisor intermediates insulin use: with [facility] use Chronic kidney disease stage: stage 3 (moderate) Chronic kidney disease stage 3 subtype: stage 3a (GFR 45-59) Qualified Code(s): E11.22 - Type 2 diabetes mellitus with diabetic chronic kidney disease; N18.31 - Chronic kidney disease, stage 3a; Z79.4 - terminal gauger (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 Plan: Patient's HgbA1c was at 9.3% when checked at the 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 office a couple of months ago on 05/23/2024 (she was previously at 7.1% back on 12/07/2023, so she is actually worse now) - goal is at least < 7.0% Reinforced diabetic diet As patient is now being seen and managed by 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 for her diabetes, I will leave it up to them to change or adjust her meds - she has an appointment coming up with them in a month's time Continue Metformin ER 500 mg BID, Toujeo 64 units QD, Humalog 15 units TID with meals and Moujaro 10 mg once a week Follows up with 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 and diabetic procurement coordinator as scheduled (2) Peripheral neuropathy: Code(s): G62.9 - Polyneuropathy, unspecified Category: Medical Qualifiers: Peripheral neuropathy type: polyneuropathy associated with underlying disease Qualified Code(s): G63 - Polyneuropathy in diseases classified elsewhere Plan: This is again most likely due to her diabetes and have advised patient that the only way to keep this from progressing is by tight control of her diabetes Continue Gabapentin 100 mg TID Will consider sending her for EMG and NCV for further evaluation if her symptoms persist despite Rx or get worse (3) Chronic kidney disease, stage III (moderate): Code(s): N18.30 - Chronic kidney disease, stage 3 unspecified Category: Medical Qualifiers: Chronic kidney disease stage 3 subtype: stage 3a (GFR 45-59) Qualified Code(s): N18.31 - Chronic kidney disease, stage 3a Plan: This was stable on her previous labs but patient was not able to get her follow up labs done recently and has not had any follow up labs done to check into this in over 2 years now (labs were last done in June 2022) so she is advised to go and get her labs done [facility] (4) Pure hypercholesterolemia: Code(s): E78.00 - Pure hypercholesterolemia, unspecified Category: Medical Plan: Reinforced low cholesterol diet She has not had any follow up labs done to check into her cholesterol since June 2022 and have advised her to go and get her fasting labs done [facility] Continue Atorvastatin 80 mg QD Will recheck her labs and fasting lipids again in 4 months follow-up (5) Benign essential hypertension: Code(s): I10 - Essential (primary) hypertension Category: Medical Plan: Reinforced low-sodium diet - goal is systolic BP of at least 120 to 130 mm or less Continue Lisinopril 5 mg QD (6) GERD without esophagitis: Code(s): K21.9 - Gastro-esophageal reflux disease without esophagitis Category: Medical Plan: Dietary restrictions reinforced (7) Varicose 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: Comment: S/P EVLT and phlebectomy by Dr. Fabricio Streeter, with significant improvement of symptoms Code(s): I83.811 - Varicose 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 Category: Medical Plan: Follow up with vascular surgery as scheduled (8) Osteopenia: Code(s): M85.80 - Other specified disorders of bone density and structure, unspecified site Category: Medical Qualifiers: Osteopenia location: unspecified Qualified Code(s): M85.80 - Other specified disorders of bone density and structure, unspecified site Plan: Her BMD done a couple of months ago in May 2024 revealed (+) osteopenia, with the lowest T score of -2.1 in the left femoral neck She is advised on fall precautions to prevent any injuries or fractures and is advised to make sure she takes her oral Calcium and Vitamin D supplements daily Will recheck her BMD again in 2 to 3 years for follow up (9) Dermatitis: Code(s): L30.9 - Dermatitis, unspecified Category: Medical Plan: Continue Mometasone 0.1% cream apply to rash QD PRN (10) Smoker: Code(s): F17.200 - Nicotine dependence, unspecified, uncomplicated Category: Social Hx Plan: Patient is counseled again on complete smoking cessation (11) Morbid obesity with BMI of 40.0-44.9, adult: Code(s): E66.01 - Morbid (severe) obesity due to excess calories; Z68.41 - Body mass index [BMI] 40.0-44.9, adult Category: Medical Plan: Reinforced diet/exercise as tolerated/lose weight Plan Follow up in 4 months Orders: Orders Complete Blood Count Auto Diff 07/22/24 D64.9 - Anemia, unspecified Comprehensive [place]. Panel Fast 07/22/24 E78.00 - Pure hypercholesterolemia, unspecified Lipid Panel 07/22/24 E78.00 - Pure hypercholesterolemia, unspecified UA CC w/rflx Micro + Cult 07/22/24 R30.0 - Dysuria Vitamin B12 and Folate 07/22/24 E53.8 - Deficiency of other specified B group vitamins Vitamin D 25-OH Total 07/22/24 E55.9 - Vitamin D deficiency, unspecified Hemoglobin A1c 4 Months E11.9 - Type 2 diabetes mellitus without complications Comprehensive [place]. Panel Fast 4 Months E78.00 - Pure hypercholesterolemia, unspecified Hemoglobin A1c 07/22/24 E11.9 - Type 2 diabetes mellitus without complications Microalbumin, Random (w Creat) 07/22/24 E11.9 - Type 2 diabetes mellitus without complications TSH reflex Free T4 07/22/24 E78.00 - Pure hypercholesterolemia, unspecified Lipid Panel 4 Months E78.00 - Pure hypercholesterolemia, unspecified Complete Blood Count Auto Diff 4 Months D64.9 - Anemia, unspecified
== END 2024-07-22 16:23 | disposition home or self-care (01) ==
LOC: HO.HMCH 15:30
PROVIDERS: PCP Internal Medicine; Visit Provider Internal Medicine
DX: I12.9 Hypertensive chronic kidney disease with stage 1 through stage 4 chronic kidney disease, or unspecified chronic kidney disease (principal); E11.22 Type 2 diabetes mellitus with diabetic chronic kidney disease; N18.31 Chronic kidney disease, stage 3a; Z79.4 Long term (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; G63 Polyneuropathy in diseases classified elsewhere; E66.01 Morbid (severe) obesity due to excess calories; Z68.41 Body mass index [BMI] 40.0-44.9, adult; E78.00 Pure hypercholesterolemia, unspecified; K21.9 Gastro-esophageal reflux disease without esophagitis; I83.811 Varicose veins of right lower extremity with pain; M85.80 Other specified disorders of bone density and structure, unspecified site; L30.9 Dermatitis, unspecified

== ENCOUNTER → 2024-07-22 15:29 | Outpatient (BNVA) | payer MEDICARE, SELFPAY | PROVIDERS: PCP Internal Medicine; Visit Provider Internal Medicine | DX: I12.9 Hypertensive chronic kidney disease with stage 1 through stage 4 chronic kidney disease, or unspecified chronic kidney disease (principal); E11.22 Type 2 diabetes mellitus with diabetic chronic kidney disease; N18.31 Chronic kidney disease, stage 3a; Z79.4 Long term (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; G63 Polyneuropathy in diseases classified elsewhere; E78.00 Pure hypercholesterolemia, unspecified; K21.9 Gastro-esophageal reflux disease without esophagitis; I83.811 Varicose veins of right lower extremity with pain; L30.9 Dermatitis, unspecified; E66.01 Morbid (severe) obesity due to excess calories; Z68.41 Body mass index [BMI] 40.0-44.9, adult; F17.200 Nicotine dependence, unspecified, uncomplicated; Z71.6 Tobacco abuse counseling; Z71.3 Dietary counseling and surveillance | CPT/HCPCS: 96127 ==

== ENCOUNTER 2024-07-28 11:52 | Outpatient (REF) | payer OTHER, SELFPAY | END 2024-07-28 11:53 | disposition home or self-care (01) | LOC: HO.MAMMO 11:52 | PROVIDERS: PCP Internal Medicine; Visit Provider Internal Medicine | DX: Z12.31 Encounter for screening mammogram for malignant neoplasm of breast (principal) | CPT/HCPCS: 77063; 77067 ==

== ENCOUNTER → 2024-07-28 12:15 | Outpatient (BNV) | payer OTHER, SELFPAY | PROVIDERS: PCP Internal Medicine; Visit Provider Internal Medicine | DX: Z12.31 Encounter for screening mammogram for malignant neoplasm of breast (principal) | CPT/HCPCS: 77063; 77067 ==

== ENCOUNTER 2024-09-29 08:35 | Outpatient (REF) | payer MEDICARE, SELFPAY ==
[2024-09-29 10:01] LABS: MANUAL DIFF FLAG NO
[2024-09-29 10:03] LABS: Basophils Absolute Auto 0.1 X10*3/uL (0.0-0.2); Eosinophils Absolute Auto 0.4 X10*3/uL (0.0-0.4); Eosinophils Percent Auto 3.8 % (0-4); Hemoglobin 13.7 g/dl (12.0-16.0); Imm Gran Abs Auto 0.03 X10*3/uL (0.00-0.03); Imm Gran Pct Auto 0.3 % (0.0-0.4); Lymphocytes Absolute Auto 3.1 X10*3/uL (1.2-4.9); Lymphocytes Percent Auto 31.4 % (20-40); Mean Corpuscular HGB Conc 32.6 g/dl (31.0-35.0); Mean Corpuscular Hemoglobin 29.8 pg (27.0-33.0); Mean Corpuscular Volume 91.5 fL (80.0-98.0); Mean Platelet Volume 11.4 fL (9.4-12.3); Monocytes Absolute Auto 0.9 X10*3/uL (0.1-1.2); Monocytes Percent Auto 9.1 % (2-11); Neutrophils Absolute Auto 5.3 x10*3/uL (2.0-8.3); Neutrophils Percent Auto 54.4 % (45-73); Platelet Count 232 X10*3/uL (160-400); Red Blood Count 4.59 X10*6/uL (4.20-5.50); Red Cell Distribution Width 12.7 % (11.0-16.0); White Blood Count 9.8 X10*3/uL (4.8-10.8)
[2024-09-29 10:09] LABS: Appearance Urine Turbid; Color Urine Yellow; Glucose Urine UA Negative (Negative); Leukocyte Esterase Urine Large (3+) (Negative); Nitrite Urine Positive (Negative); PH 5.5 (5.0-9.0); Specific Gravity - Urine 1.015 (1.005-1.025); UMIC TRIGGER UACC YES; Urine Blood Small (1+) (Negative); Urine Ketones Negative (Negative); Urine Protein 30 (1+) mg/dL (Neg-Trace)
[2024-09-29 10:10] LABS: Estimated Average Glucose 186 mg/dL; Hemoglobin A1c % 8.1 % (<6.0)
[2024-09-29 10:21] LABS: Bacteria Urine 2+ (None Seen); Hyaline Casts Urine 0-2 /LPF (0-2); RBC Urine 0-2 /HPF (0-2); UACC Culture Trigger YES; WBC Clumps Urine Present; WBC Urine >50 /HPF (0-5)
[2024-09-29 10:28] LABS: Alanine Aminotransferase 25 U/L (0-31); Albumin Level 3.8 g/dL (3.5-5.0); Alkaline Phosphatase 80 U/L (39-117); Anion Gap 11 (12-20); Aspartate Amino Transferase 19 U/L (5-31); Bilirubin Total 0.3 mg/dL (0.0-1.0); Blood Urea Nitrogen 15 mg/dL (9-16); Carbon Dioxide 27 mmol/L (22-29); Chloride 108 mmol/L (96-108); Cholesterol 177 mg/dL (<200); Estimated Glomerular Filt Rate > 60; Glucose Fasting 179 mg/dL (60-99); HDL Cholesterol 29 mg/dL (>40); LDL Cholesterol Calculated 106 mg/dL (<100); Potassium 4.5 mmol/L (3.3-5.1); Sodium 141 mmol/L (135-145); Total Protein 6.9 g/dL (6.5-8.0); Triglycerides 210 mg/dL (<150)
[2024-09-29 10:46] LABS: TSH reflex Free T4 1.77 uIU/mL (0.32-4.0); Vitamin D 25-OH Total 15.5 ng/mL (>30)
[2024-09-29 10:50] LABS: Folate 8.3 ng/mL (> or = 4.0); Vitamin B12 406 pg/mL (200-900)
[2024-09-29 10:57] LABS: Creatinine Urine 92.38 mg/dL; Microalbum/Creatinine Ratio Ur 186.1 ug/mg cr (<30)
== END 2024-09-29 08:36 | disposition home or self-care (01) ==
LOC: HO.10HDL 08:35
PROVIDERS: Visit Provider Internal Medicine
DX: D64.9 Anemia, unspecified (principal); E78.00 Pure hypercholesterolemia, unspecified; E53.8 Deficiency of other specified B group vitamins; E55.9 Vitamin D deficiency, unspecified; E11.9 Type 2 diabetes mellitus without complications; R30.0 Dysuria
CPT/HCPCS: 36415; 80053; 80061; 81001; 82043; 82306; 82570; 82607; 82746; 82947; 83036; 84443; 85025; 87086; 87088; 87186

== ENCOUNTER 2024-09-29 13:55 | Outpatient (AMB) | payer OTHER, SELFPAY ==
[2024-09-29 13:58] VITALS: BP 140/86; PULSE 92; O2SAT 95; BMI 41.3
--- NOTE | 2024-09-29 13:58 | MHC.OFFVIS ---
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 Accompanied by: Self / Same As Patient Allergies No Known Allergies Allergy (Verified 09/29/24 14:05) Medication List - Last Reconciled 09/29/24 by Jade Brandon PA-C atorvastatin 80 mg PO BEDTIME 90 days blood sugar diagnostic (FreeStyle Lite Strips) As directed 4 times a day - Dx: 11.22 - DIABETES 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 sensor (FreeStyle Mariana 3 Sensor device) As directed change every 14 days 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 sensor (FreeStyle Mariana 3 Plus Sensor device) Use daily As directed to monitor glucose 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,customer experience associate,cont (FreeStyle Mariana 3 [place]) As directed gabapentin 100 mg PO TID 30 days glucose (Dex4 Glucose) 16 grams (4 x 4 gram) PO Q15M PRN 30 days insulin glargine U-300 conc (Toujeo SoloStar U-300 Insulin) 64 units (0.2133 mL) subcut DAILY insulin lispro (Humalog KwikPen (U-100) Insulin) 15 units (0.15 mL) subcut TID lisinopril 5 mg PO DAILY metformin ER 500 mg PO BID pen needle, diabetic (BD Katie 2nd Gen Pen Needle) inject Rx as directed up to 5 times a day [ROLLATOR As directed] HPI HPI Diabetes Type 2: Details: Patient is a 64-year-old female with a significant past medical history morbid obesity, hypertension, hyperlipidemia, chronic kidney disease and type 2 diabetes presenting today for a follow-up regarding her diabetes. Endo: Her last A1c is 8.1. She is currently on Toujeo 64 units, Humalog 10 units t.i.d., metformin 500 mg twice a day, and mounjaro 10 q weekly -unable to tolerate higher doses of metformin. Trulicity cause nausea and vomiting cgm-usage 64%, average glucose 134, GMI 6.5%, variability 23. 92% in target, 8% hyperglycemic. 0% hypoglycemia -no more hypoglycemic events since last visit hypoglycemia- rare, corrects with candy or glucose tabs. follows rule of 15s. CV: Blood pressure today in the office is 140/80. She is currently on lisinopril 5 mg but did not yet take this.. Cholesterol is managed with atorvastatin 80 mg but tells me that she does not take this much. Uro: Recent labs showed a possible UTI. She states that for the last week or so she has had intermittent increased urinary frequency and urgency with malodorous urine. No abnormal vaginal discharge or bleeding. No fevers or chills. No flank pain. No abdominal pain. Able to eat and drink without difficulty. Nephro: Has ongoing microalbuminuria. 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 Diabetes type 2, uncontrolled Ulcer of right ankle Urinary incontinence Morbid obesity with BMI of 45.0-49.9, adult Smoker GERD without esophagitis Varicose 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 Benign essential hypertension Pure hypercholesterolemia Type 2 diabetes mellitus with diabetic chronic kidney disease Dyslipidemia Surgical History Status post phlebectomy Hx of vascular surgery Hx of umbilical hernia repair Hx of section Family History Father CVA (cerebral vascular accident) Heart disease Mother Lung disease Son ADHD Other Mental health problem Social History Household Members: Family Housing: House Alcohol intake: never Patient Tobacco Use Status: Current everyday Tobacco user Cigarettes Per Day: 5 e-Cigarette/Vaping Use: Never Used Second Hand Smoke Exposure: Yes service: No Current occupational status: unemployed Cognitive needs: No Hearing needs: No Vision needs: No Physical Exam Vital Signs: Last Vital Signs Pulse 92 09/29/24 13:58 BP 140/86 H 09/29/24 13:58 Pulse Ox 95 09/29/24 13:58 Oxygen Delivery Method Room Air 09/29/24 13:58 BMI result Body Mass Index 41.3 Const Orientation/consciousness: patient oriented x3 Neck Neck: Yes no lymphadenopathy Thyroid: Thyroid normal Carotids: no bruits Resp Auscultation: clear to auscultation bilaterally Cardio Rate: regular rate Rhythm: regular rhythm Heart sounds: S1 normal heart sound present and S2 normal heart sound present Peripheral pulses: dorsalis pedis present Neuro General: patient oriented x3, gait normal and no focal motor deficits Extrem Other: Monofilament sensation intact bilaterally. Vibratory sensation intact bilaterally. Skin intact. General: Yes normal to inspection Results Reviewed Results Reviewed: Laboratory Last Values Glucose (Clinic) 136 mg/dL (60-115) H 09/29/24 14:07 Laboratory Tests 09/29/24 08:40 Creatinine 0.91 Estimated GFR > 60 Fasting Glucose 179 H Estimat Average Glucose 186 Hemoglobin A1c % 8.1 H AST 19 ALT 25 Triglycerides 210 H Cholesterol 177 LDL Cholesterol, Calc 106 H HDL Cholesterol 29 L Urine Creatinine 92.38 Urine Microalbumin 172.0 Microalb/Creat Ratio 186.1 H Assessment & Plan Assessment & Plan (1) Diabetic polyneuropathy associated with type 2 diabetes mellitus: Code(s): E11.42 - Type 2 diabetes mellitus with diabetic polyneuropathy Category: Medical Plan: incease mounjaro to 12.5 mg weekly continue metformin 500 mg bid continue toujeo 64 units daily continue humalog 10 units TID recheck labs in 3 months -discuss at next visit starting Jardiance. (2) half-way (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: Code(s): Z79.4 - half-way (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 Category: Medical Plan: see above (3) Morbid obesity: Code(s): E66.01 - Morbid (severe) obesity due to excess calories Category: Medical Plan: continue mounjaro encouraged diet changes reducing portion sizes (4) Pure hypercholesterolemia: Code(s): E78.00 - Pure hypercholesterolemia, unspecified Category: Medical Plan: reports she will now be compliant with atorvastatin. I will recheck labs in 3 months. Discussed if this is still not at control maybe adding Zetia. 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 (7) Symptoms of urinary tract infection: Code(s): R39.9 - Unspecified symptoms and signs involving the genitourinary system Plan: We will start Macrobid. Discussed risks and benefits and adverse effects of the medication. She will let me know if her symptoms do not improve or if anything worsens or changes advised to contact myself or her pcp.. Orders: Orders Lipid Panel 3 Months E11.22 - Type 2 diabetes mellitus with diabetic chronic kidney disease, E11.42 - Type 2 diabetes mellitus with diabetic polyneuropathy, E66.01 - Morbid (severe) obesity due to excess calories, E78.00 - Pure hypercholesterolemia, unspecified, I10 - Essential (primary) hypertension, N18.31 - Chronic kidney disease, stage 3a, R39.9 - Unspecified symptoms and signs involving the genitourinary system, Z79.4 - half-way (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 Comprehensive [place]. Panel Fast 3 Months E11.22 - Type 2 diabetes mellitus with diabetic chronic kidney disease, E11.42 - Type 2 diabetes mellitus with diabetic polyneuropathy, E66.01 - Morbid (severe) obesity due to excess calories, E78.00 - Pure hypercholesterolemia, unspecified, I10 - Essential (primary) hypertension, N18.31 - Chronic kidney disease, stage 3a, R39.9 - Unspecified symptoms and signs involving the genitourinary system, Z79.4 - half-way (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 Hemoglobin A1c 3 Months E11.22 - Type 2 diabetes mellitus with diabetic chronic kidney disease, E11.42 - Type 2 diabetes mellitus with diabetic polyneuropathy, E66.01 - Morbid (severe) obesity due to excess calories, E78.00 - Pure hypercholesterolemia, unspecified, I10 - Essential (primary) hypertension, N18.31 - Chronic kidney disease, stage 3a, R39.9 - Unspecified symptoms and signs involving the genitourinary system, R73.01 - Impaired fasting glucose, Z79.4 - half-way (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 Referrals Nephrology Referral E11.29 - Type 2 diabetes mellitus with other diabetic kidney complication, N18.31 - Chronic kidney disease, stage 3a, R80.9 - Proteinuria, unspecified Medications: New tirzepatide (Mounjaro) 12.5 mg (0.5 mL) subcut QWEEK 2 mL 4RF nitrofurantoin monohyd/m-cryst 100 mg (Macrobid) must administer with a meal/food 100 mg PO Q12H 14 caps 0RF 7 days Changed From insulin lispro (Humalog KwikPen (U-100) Insulin) with breakfast, lunch and supper 15 units (0.15 mL) subcut TID 15 mL 11RF To insulin lispro (Humalog KwikPen (U-100) Insulin) with breakfast, lunch and supper 10 units (0.1 mL) subcut TID 15 mL 11RF Refilled atorvastatin 80 mg PO BEDTIME 90 tabs 3RF 90 days E11.65 - Type 2 diabetes mellitus with hyperglycemia, E78.00 - Pure hypercholesterolemia, unspecified Patient Instructions: increase mounjaro to 12.5 mg weekly continue metformin and insulin as you have been start taking atorvastatin nightly - we will recheck labs in 3 months i have referred you to a kidney doctor for the protein in the urine i have started you on an antibiotic (macrobid) for a urinary tract infection. 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
[2024-09-29 14:11] LABS: Glucose, Whole Blood 136 mg/dL (60-115)
== END 2024-09-29 14:30 | disposition home or self-care (01) ==
LOC: HO.ENCR 13:56
PROVIDERS: PCP Internal Medicine; Visit Provider Physician Assistant
DX: E11.42 Type 2 diabetes mellitus with diabetic polyneuropathy (principal); Z79.4 Long term (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; E66.01 Morbid (severe) obesity due to excess calories; E78.00 Pure hypercholesterolemia, unspecified; E11.22 Type 2 diabetes mellitus with diabetic chronic kidney disease; N18.31 Chronic kidney disease, stage 3a; I10 Essential (primary) hypertension; R39.9 Unspecified symptoms and signs involving the genitourinary system

== ENCOUNTER 2024-11-20 13:31 | Outpatient (AMB) | payer OTHER, SELFPAY ==
--- OUTSIDE RECORDS SUMMARY | 2024-11-20 13:35 | XMS_ITS | Clinical Summary ---
Author Organization [facility] Address [address] [place] [id number] Phone Care Team Providers Care Accelerator Technician Name Role Phone Herson Dsouza MD Primary Care Provider [phone] Allergies No known active allergies Medications lisinopril (PRINIVIL,ZESTR IL) 5 MG tablet Take 5 mg by mouth daily. Active metFORMIN (GLUCOPHAGE) 1000 MG tablet Take 1,000 mg by mouth 2 (two) times a day with meals. Active dulaglutide (TRULICITY SUBQ) Inject under the skin once a week. Active albuterol 90 mcg/actuation inhaler Inhale 2 puffs into the lungs 4 (four) times a day. While coughing persists 1 each 04/26/2019 Active Active Problems No known active problems Social History Tobacco Use Types Packs/Day Years Used Date Smoking Tobacco: Every Day Cigarettes Tobacco Cessation:Ready to Q uit: Not Asked; Counseling Given: Not Answered Alcohol Use Standard Drinks/Week Comments Never 0 (1 standard drink = 0.6 oz pur e alcohol) Education Answer Date Recorded Are you interested in more education? Not on betsy e 08/11/2022 Are you concerned about learning? Not on file 08/11/2022 No 08/11/2022 No 08/11/2022 Digital Access Answer Date Recorded No 09/11/2022 No 09/11/2022 No 09/11/2022 Reliable internet access at home? Not on file 09/11/2022 Device with a working camera? Not on file Comments Unknown Sex and Gender Information Value Date Recorded Sex Assigned at Female 03/15/2022 7:09 PM EST Legal Sex Female 9:44 PM EDT Gender Identity Female 03/15/2022 7:09 PM EST Sexual Orientation Not on file Last Filed Vital Signs Vital Sign Reading Time Taken Comments Blood Pressure 146/91 03/15/2022 11:30 PM EST Pulse 99 03/15/2022 11:30 PM EST Temperature 36.2 C (97.2 F) 03/15/2022 11:30 PM EST Respiratory Rate 18 03/15/2022 11:30 PM EST Oxygen Saturation 98% 03/15/2022 11:30 PM EST Inhaled Oxygen Concentration - - Weight 108.9 kg (240 lb) 03/15/2022 7:06 PM EST Height - - Body Mass Index - - Plan of Treatment Not on file Medical Devices Not on file Insurance [employer]WORK O [facility] MEDICARE REPLACEMENT [facility] NETWORK O [facility] MEDICARE [facility]PLACEMENT [employer] HMO [facility] [place] [address] [employer] NETWORK HMO [facility] MEDICARE REPLACEMENT [facility] NETWORK HMO [facility] MEDIC[facility]AC[facility] [place] [place] [address] NETWORK HMO [facility] [place] [address] Care Teams Accelerator Technician Relationship Specialty Start Date End Date Herson Dsouza MD [address] [place] [address] Dr Cook [address] [place] [id number] PCP - General Internal Medicine 04/25/19 Additional Source Comments The information contained in this document represents components of the legal health record. It is not the complete legal health record.[facility]
[2024-11-20 13:36] VITALS: BP 142/84; PULSE 101; O2SAT 97; BMI 40.5
--- NOTE | 2024-11-20 13:36 | HO.NEPHOV ---
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 Accompanied by: Self / Same As Patient Allergies No Known Allergies Allergy (Verified 11/20/24 13:38) Medication List - Last Reconciled 11/20/24 by Avinash Vela MD atorvastatin 80 mg PO BEDTIME 90 days blood sugar diagnostic (FreeStyle Lite Strips) As directed 4 times a day - Dx: 11.22 - DIABETES 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 sensor (FreeStyle Mariana 3 Sensor device) As directed change every 14 days 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 sensor (FreeStyle Mariana 3 Plus Sensor device) Use daily As directed to monitor glucose 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,promotion producer,cont (FreeStyle Mariana 3 [place]) As directed insulin glargine U-300 conc (Toujeo SoloStar U-300 Insulin) 64 units (0.2133 mL) subcut DAILY insulin lispro (Humalog KwikPen (U-100) Insulin) 10 units (0.1 mL) subcut TID lisinopril 5 mg PO DAILY metformin ER 500 mg PO BID pen needle, diabetic (BD Katie 2nd Gen Pen Needle) inject Rx as directed up to 5 times a day [ROLLATOR As directed] tirzepatide (Mounjaro) 12.5 mg (0.5 mL) subcut QWEEK HPI Comments Details: The patient is a 64-year-old female presenting with proteinuria, diabetes, and hypertension and Obesity. The proteinuria was identified by her primary care physician, prompting this nephrology consultation. The patient has a history of diabetes mellitus for several years, managed with metformin and multiple insulin . She reports that her blood glucose levels are gradually coming under control. Hypertension has been present for approximately 5 to 6 years, currently managed with 5 mg of lisinopril. The patient experienced hypotensive episodes when previously on a higher dose of 40 mg, leading to a reduction in dosage. She notes that her blood pressure fluctuates with dietary intake, particularly with salty foods. The patient also reports neuropathy, which has been present for several years, contributing to swelling in one leg. There is no difficulty with urination or breathing, and no significant weight changes were noted recently. 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 Diabetes type 2, uncontrolled Ulcer of right ankle Urinary incontinence Morbid obesity with BMI of 45.0-49.9, adult Smoker GERD without esophagitis Varicose 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 Benign essential hypertension Pure hypercholesterolemia Type 2 diabetes mellitus with diabetic chronic kidney disease Dyslipidemia Surgical History Status post phlebectomy Hx of vascular surgery Hx of umbilical hernia repair Hx of section Family History Father CVA (cerebral vascular accident) Heart disease Mother Lung disease Son ADHD Other Mental health problem Social History Household Members: Family Housing: House Alcohol intake: never Patient Tobacco Use Status: Current everyday Tobacco user Cigarettes Per Day: 5 e-Cigarette/Vaping Use: Never Used Second Hand Smoke Exposure: Yes service: No Current occupational status: unemployed Cognitive needs: No Hearing needs: No Vision needs: No Review of Systems Const Denies anorexia, Denies fever(s) and Denies weakness Eyes Denies blurry vision Card Denies no additional complaints and Denies dyspnea Resp Reports no additional complaints, Reports cough and Denies dyspnea GI Denies melena and Denies diarrhea Denies hematuria Musc Denies tingling Skin/Breast Denies rash Neuro Denies focal weakness, Denies tingling, Denies tremor(s) and Denies weakness Physical Exam Vital Signs: Last Vital Signs Pulse 101 H 11/20/24 13:36 BP 142/84 H 11/20/24 13:36 Pulse Ox 97 11/20/24 13:36 BMI result Body Mass Index 40.5 Comfortable Neck supple no JVD. Lungs entry equal no rales. Heart S1-S2 heard no gallop or rub. Abdomen soft nontender. Neuro alert awake oriented. No asterixis. Extremities no edema. Const General: comfortable Nutritional Appearance: well nourished Orientation/consciousness: patient oriented x3 HEENT Head: No normal to inspection Mouth: moist mucous membranes Neck Neck: Yes supple and Yes no JVD Resp Auscultation: clear to auscultation bilaterally and no rales Cardio Jugular venous distension: no JVD Palpation: no palpable S3 and no palpable S4 Heart sounds: no rubs GI Palpation (GI): Soft to palpation and nontender Percussion: No Fluid wave present General: Yes no CVA tenderness Back/Spine/Pelvis Back: no CVA tenderness Skin General skin exam: no rashes or lesions noted Neuro General: patient oriented x3 Extrem General: Yes no pedal edema and No clubbing Results Reviewed Nephrology Results: Hgb, (12.0-16.0) 13.7 g/dl 09/29/24 WBC, (4.8-10.8) 9.8 X10*3/uL 09/29/24 Plt Count, (160-400) 232 X10*3/uL 09/29/24 Sodium, (135-145) 141 mmol/L 09/29/24 Potassium, (3.3-5.1) 4.5 mmol/L 09/29/24 Chloride, (96-108) 108 mmol/L 09/29/24 Carbon Dioxide, (22-29) 27 mmol/L 09/29/24 BUN, (9-16) 15 mg/dL 09/29/24 Creatinine, (0.5-1.4) 0.91 mg/dL 09/29/24 Calcium, (8.4-10.2) 9.0 mg/dL 09/29/24 Urine Protein, (Neg-Trace) 30 (1+) mg/dL H 09/29/24 Urine Creatinine 92.38 mg/dL 09/29/24 Assessment & Plan Assessment & Plan (1) Benign essential hypertension: Code(s): I10 - Essential (primary) hypertension Category: Medical Plan Has microalbuminuria in the setting of diabetes mellitus and obesity. She probably has underlying diabetic kidney disease. Goal is to slow the progression of renal disease. I would maximize IZABELLA inhibition as tolerated. With your permission I would increase lisinopril from 5 mg up to 10 mg and watch her blood pressure and renal function. Her renal function is stable with a serum creatinine 0.9 mg/dL. In 2021, creatinine bumped up to 1.26 mg/dL. She probably had a component of LOREN which seems to have resolved. Was discussed importance of tight control blood sugar and blood pressure to slow the progression of disease she will benefit from weight loss she should continue to stay on low-sodium diet. Continue to avoid nephrotoxic agents including NSAIDs. Encouraged her to increase fluid intake. Returned to the clinic in the next 3 months Orders: Orders Total Protein Urine Random 3 Months I10 - Essential (primary) hypertension, N18.31 - Chronic kidney disease, stage 3a UA and rflx microscopic 3 Months I10 - Essential (primary) hypertension, N18.31 - Chronic kidney disease, stage 3a Basic Metabolic Panel 3 Months I10 - Essential (primary) hypertension, N18.31 - Chronic kidney disease, stage 3a Creatinine Urine 3 Months I10 - Essential (primary) hypertension, N18.31 - Chronic kidney disease, stage 3a Medications: Changed From lisinopril 5 mg PO DAILY 90 tabs 1RF To lisinopril 10 mg PO DAILY 90 tabs 1RF Coding Level of Care Code New Pt Level 4 (36417) Diagnoses Benign essential hypertension I10
== END 2024-11-20 13:51 | disposition home or self-care (01) ==
LOC: HO.HKA 13:32
PROVIDERS: PCP Internal Medicine; Visit Provider Internal Medicine Hypertension Specialist
DX: I10 Essential (primary) hypertension (principal)
CPT/HCPCS: 99204

== ENCOUNTER 2024-11-24 13:02 | Outpatient (AMB) | payer OTHER, SELFPAY ==
[2024-11-24 13:04] VITALS: BP 118/68; PULSE 87; O2SAT 98; BMI 40.2
--- NOTE | 2024-11-24 13:04 | MHC.PC.OV ---
Vital Signs 11/24/24 13:04 Height 5 ft 4 in Weight 234 lb 4 oz BMI 40.2 BP 118/68 Blood Pressure Location Lt femoral Position Sitting Pulse 87 Pulse Source Pulse Oximeter Pulse Oximetry (%) 98 Oxygen Delivery Method Room Air Intake Visit Reasons: Follow Up - see comments Medical Claims Representative Required: No Accompanied by: Self / Same As Patient Allergies No Known Allergies Allergy (Verified 11/24/24 13:36) Medication List - Last Reconciled 11/24/24 by Herson Dsouza MD atorvastatin 80 mg PO BEDTIME 90 days blood sugar diagnostic (FreeStyle Lite Strips) As directed 4 times a day - Dx: 03.07 - DIABETES 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 sensor (FreeStyle Mariana 3 Sensor device) As directed change every 14 days 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 sensor (FreeStyle Mariana 3 Plus Sensor device) Use daily As directed to monitor glucose 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,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,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 (FreeStyle Mariana 3 [place]) As directed insulin glargine U-300 conc (Toujeo SoloStar U-300 Insulin) 64 units (0.2133 mL) subcut DAILY insulin lispro (Humalog KwikPen (U-100) Insulin) 10 units (0.1 mL) subcut TID lisinopril 10 mg PO DAILY metformin ER 500 mg PO BID pen needle, diabetic (BD Katie 2nd Gen Pen Needle) inject Rx as directed up to 5 times a day [ROLLATOR As directed] tirzepatide (Mounjaro) 12.5 mg (0.5 mL) subcut QWEEK Tobacco use date assessed: 11/24/24 Dental Screening Dental Screen Date: 11/24/24 Did you have a dental visit in the last 12 months?: No Did you have a dental problem in the last 6 months where you did not have access to dental care?: No Was dental information given to patient?: Patient has dentist HPI Follow Up - see comments HPI Details Patient comes in today for her follow up visit States that she currently feels okay She continues to follow up with [facility] Endocrinology for her diabetes management and as of 09/28/2024, her HgbA1c was down to 8.1% She denies any headaches or dizziness Denies any chest pains, no increased shortness of breath No nausea/vomiting, no abdominal pain No change in bowel habits noted She had her follow up labs last done a couple of months ago - to discuss her results [facility] Medical History (Updated 11/24/24 @ 13:53 by Herson Dsouza MD) Vitamin D deficiency Osteopenia Morbid obesity with BMI of 40.0-44.9, adult Chronic kidney disease, stage III (moderate) Diabetic polyneuropathy associated with type 2 diabetes mellitus 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 (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 Diabetes type 2, uncontrolled Ulcer of right ankle Urinary incontinence Morbid obesity with BMI of 45.0-49.9, adult Smoker GERD without esophagitis Varicose 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 Benign essential hypertension Pure hypercholesterolemia Type 2 diabetes mellitus with diabetic chronic kidney disease Dyslipidemia Surgical History Status post phlebectomy Hx of vascular surgery Hx of umbilical hernia repair Hx of section Family History Father CVA (cerebral vascular accident) Heart disease Mother Lung disease Son ADHD Other Mental health problem Social History Household Members: Family Housing: House Alcohol intake: never Patient Tobacco Use Status: Current everyday Tobacco user Cigarettes Per Day: 5 e-Cigarette/Vaping Use: Never Used Second Hand Smoke Exposure: Yes service: No Current occupational status: unemployed Cognitive needs: No Hearing needs: No Vision needs: No Questionnaire PHQ-9 Over the last 2 weeks, how often have you been bothered by any of the following problems? 1. Little interest or pleasure in doing things: not at all 2. Feeling down, depressed, or hopeless: not at all 3. Trouble falling or staying asleep, or sleeping too much: not at all 4. Feeling tired or having little energy: not at all 5. Poor appetite or overeating: not at all 6. Feeling bad about yourself - or that you are a failure or have let yourself or your family down: not at all 7. Trouble concentrating on things, such as reading the newspaper or watching television: not at all 8. Moving or speaking so slowly that other people could have noticed. Or the opposite - being so fidgety or restless that you have been moving around a lot more than usual: not at all 9. Thoughts that you would be better off or of hurting yourself in some way: not at all Total score: 0 Depression Screening Interpretation: Negative Depression Screening Done: Yes 53785 - PHQ-9 Billing: Yes Source: Developed by Drs. Adal Hooks, America Medley, Gamaliel Neely and colleagues, with an educational lilly from [employer]. Thrive Questionnaire Date Thrive assessed: 11/24/24 I am a: Patient What is your living situation today?: I have a steady place to live Within the past 12 months, did the food you bought not last and you didn't have the money to get more?: I choose not to answer this question Within the past 12 months, did you worry whether your food would run out before you got money to buy more?: Never true Do you have trouble paying for medicines?: No Do you have trouble getting transportation to medical appointments?: No Do you have trouble paying your heating and electricity bill?: No Do you have trouble taking care of your child, family member or friend?: I choose not to answer this question Do you have trouble with day-to-day activities such as bathing, preparing meals, shopping, managing finances, etc.?: No Are you currently unemployed and looking for a job?: No Are you interested in more education?: No Please select the resources that you would like help with: None Currently or been in a relationship where the following occur: No concerns reported THRIVE Score: 0 AUDIT C Alcohol Use Questionnaire (AUDIT-C) 1. How often do you have a drink containing alcohol?: Never 3. How often do you have six or more drinks on one occasion?: Never Total Score: 0 Score Reviewed/Action Taken: Yes JOSÉ LUIS-7 AMB Questionnaire JOSÉ LUIS-7 Date JOSÉ LUIS - 7 assessed: 11/24/24 Feeling nervous, anxious, or on edge: 0 = Not at all Not being able to stop or control worryin = Not at all Worrying too much about different things: 0 = Not at all Trouble relaxin = Not at all Being so restless that it is hard to sit still: 0 = Not at all Becoming easily annoyed or irritable: 0 = Not at all Feeling afraid as if something awful might happen: 0 = Not at all Total JOSÉ LUIS-7 score (0-4 normal; 5-9 mild; 10-14 moderate; 15-21 severe): 0 Source: Developed by Drs. Adal Hooks, America Medley, Gamaliel Neely and colleagues, with an educational lilly from [employer]. Review of Systems Const Denies chills, Denies fatigue, Denies fever(s) and Denies headache(s) ENT Denies dysphagia, Denies dizziness, Denies otalgia, Denies headache(s), Denies neck pain, Denies odynophagia and Denies sore throat Card Denies chest pain, Denies irregular heart rhythm, Denies palpitations and Denies dyspnea Resp Denies chest congestion, Denies cough and Denies dyspnea GI Denies abdominal pain, Denies constipation, Denies dysphagia, Denies heartburn, Denies diarrhea, Denies nausea, Denies odynophagia and Denies vomiting Denies urinary frequency, Denies dysuria and Denies urinary incontinence Musc Denies back pain, Denies arthralgias and Denies neck pain Skin/Breast Denies rash Neuro Denies dizziness, Denies headache(s) and Denies paresthesias Psych Denies anxiety and Denies depression Endo Denies fatigue and Denies palpitations Ethan/Lymph Denies easy bruising Physical exam (Primary Care) Vital Signs: Last Vital Signs Pulse 87 11/24/24 13:04 BP 118/68 11/24/24 13:04 Pulse Ox 98 11/24/24 13:04 Oxygen Delivery Method Room Air 11/24/24 13:04 BMI result Body Mass Index 40.2 Tobacco/Smoking Status: Tobacco use Status Tobacco use date assessed 11/24/24 11/24/24 13:09 Patient Tobacco Use Status Current everyday Tobacco 11/24/24 13:09 e-Cigarette/Vaping Use Never Used 11/24/24 13:09 PHQ-9: PHQ-9 Score PHQ-9: Total score 0 11/24/24 13:16 Depression Screening Interpretation: Negative Thrive Assessment: Date of Thrive Assessment Date Thrive assessed 11/24/24 11/24/24 13:09 Currently or been in a relationship where the following occur: No concerns reported Const General: no acute distress and alert HENMT Ears: TM's normal bilaterally and EAC's normal Throat: Yes posterior oropharynx normal and Yes tonsils normal (no TP congestion) Neck Neck: Yes supple and No lymphadenopathy Thyroid: Thyroid normal Resp Auscultation: clear to auscultation bilaterally, no rales and no wheezes Cardio Rate: regular rate Rhythm: regular rhythm Heart sounds: no murmurs GI Palpation (GI): Soft to palpation and nontender Auscultation: normal bowel sounds General: Yes no CVA tenderness Back/Spine/Pelvis Back: no CVA tenderness Thoracic/Lumbar Spine: No lumbar spinal tenderness Skin Rashes: no rashes Extrem General: Yes no clubbing, cyanosis or edema Results Reviewed Results Reviewed: Laboratory Tests 09/29/24 08:40 WBC 9.8 Hgb 13.7 Hct 42.0 Plt Count 232 Sodium 141 Potassium 4.5 Creatinine 0.91 Estimated GFR > 60 Fasting Glucose 179 H Hemoglobin A1c % 8.1 H Calcium 9.0 AST 19 ALT 25 Triglycerides 210 H Cholesterol 177 LDL Cholesterol, Calc 106 H HDL Cholesterol 29 L Vitamin B12 406 25-OH Vitamin D Total 15.5 L TSH 1.77 Ur Specific Paden 1.015 Urine Protein 30 (1+) H Urine Glucose (UA) Negative Urine Blood Small (1+) H Urine Nitrite Positive H Ur Leukocyte Esterase Large (3+) H Microalb/Creat Ratio 186.1 H Coding Level of Care Code Est Pt Level 4 (90969) Complex EM visit Add On G2211 Diagnoses Type 2 diabetes mellitus with stage 3a chronic kidney disease, with long-term current use of insulin E11.22; N18.31; Z79.4 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 long 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 truck driver use Chronic kidney disease stage: stage 3 (moderate) Chronic kidney disease stage 3 subtype: stage 3a (GFR 45-59) Polyneuropathy associated with underlying disease G63 Peripheral neuropathy type: polyneuropathy associated with underlying disease Stage 3a chronic kidney disease N18.31 Chronic kidney disease stage 3 subtype: stage 3a (GFR 45-59) Pure hypercholesterolemia E78.00 Benign essential hypertension I10 Vitamin D deficiency E55.9 GERD without esophagitis K21.9 Varicose 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 I83.811 Osteopenia, unspecified location M85.80 Osteopenia location: unspecified Dermatitis L30.9 Smoker F17.200 Morbid obesity with BMI of 40.0-44.9, adult E66.01; Z68.41 Additional Codes PHQ-9 - 94745 - PHQ-9 Billing: Yes ([id number]) Assessment & Plan Assessment & Plan (1) Type 2 diabetes mellitus with diabetic chronic kidney disease: Code(s): E11.22 - Type 2 diabetes mellitus with diabetic chronic kidney disease Category: Medical Qualifiers: 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 penitentiary use Chronic kidney disease stage: stage 3 (moderate) Chronic kidney disease stage 3 subtype: stage 3a (GFR 45-59) Qualified Code(s): E11.22 - Type 2 diabetes mellitus with diabetic chronic kidney disease; N18.31 - Chronic kidney disease, stage 3a; Z79.4 - [facility] (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 Plan: Patient's HgbA1c was at 8.1% on her labs done a couple of months ago on 09/29/2024 (her HgbA1c was previously at 9.3% back on 05/23/2024) - goal is at least < 7.0% Reinforced diabetic diet Continue Metformin ER 500 mg BID, Toujeo 64 units QD, Humalog 10 units TID with meals and Moujaro 12.5 mg once a week Follows up with 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 as 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 (2) Peripheral neuropathy: Code(s): G62.9 - Polyneuropathy, unspecified Category: Medical Qualifiers: Peripheral neuropathy type: polyneuropathy associated with underlying disease Qualified Code(s): G63 - Polyneuropathy in diseases classified elsewhere Plan: This is again most likely due to her diabetes and have advised patient that the only way to keep this from progressing is by tight control of her diabetes Will consider sending her for EMG and NCV for further evaluation if her symptoms persist or progress (3) Chronic kidney disease, stage III (moderate): Code(s): N18.30 - Chronic kidney disease, stage 3 unspecified Category: Medical Qualifiers: Chronic kidney disease stage 3 subtype: stage 3a (GFR 45-59) Qualified Code(s): N18.31 - Chronic kidney disease, stage 3a Plan: Appears stable - her serum creatinine and GFR have both actually improved from her previous numbers a couple of years ago Have reminded patient that better control of her diabetes should help preserve her renal function and keep her from progressing Follow up with nephrology as scheduled (4) Pure hypercholesterolemia: Code(s): E78.00 - Pure hypercholesterolemia, unspecified Category: Medical Plan: Results of her labs done a couple of months ago reviewed and discussed with patient Reinforced low cholesterol diet Continue Atorvastatin 80 mg QD Will recheck her labs and fasting lipids again in 4 months follow-up (5) Benign essential hypertension: Code(s): I10 - Essential (primary) hypertension Category: Medical Plan: Reinforced low-sodium diet - goal is systolic BP of at least 120 to 130 mm or less Continue Lisinopril 5 mg QD (6) Vitamin D deficiency: Code(s): E55.9 - Vitamin D deficiency, unspecified Category: Medical Plan: She is advised that her Vitamin D level was low on her recent labs Will start her on Vitamin D3 2000 units QD (7) GERD without esophagitis: Code(s): K21.9 - Gastro-esophageal reflux disease without esophagitis Category: Medical Plan: Dietary restrictions reinforced (8) Varicose 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: Comment: S/P EVLT and phlebectomy by Dr. Fabricio Streeter, with significant improvement of symptoms Code(s): I83.811 - Varicose 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 Category: Medical Plan: Follow up with vascular surgery as scheduled (9) Osteopenia: Code(s): M85.80 - Other specified disorders of bone density and structure, unspecified site Category: Medical Qualifiers: Osteopenia location: unspecified Qualified Code(s): M85.80 - Other specified disorders of bone density and structure, unspecified site Plan: Her BMD done a couple of months ago in May 2024 revealed (+) osteopenia, with the lowest T score of -2.1 in the left femoral neck She is advised on fall precautions to prevent any injuries or fractures and is advised to make sure she takes her oral Calcium and Vitamin D supplements daily Will recheck her BMD again in 2 to 3 years for follow up (10) Dermatitis: Code(s): L30.9 - Dermatitis, unspecified Category: Medical Plan: Continue Mometasone 0.1% cream apply to rash QD PRN (11) Smoker: Code(s): F17.200 - Nicotine dependence, unspecified, uncomplicated Category: Social Hx Plan: Patient is counseled again on complete smoking cessation (12) Morbid obesity with BMI of 40.0-44.9, adult: Code(s): E66.01 - Morbid (severe) obesity due to excess calories; Z68.41 - Body mass index [BMI] 40.0-44.9, adult Category: Medical Plan: Reinforced diet/exercise as tolerated/lose weight - she has lost some weight since she was started on Mounjaro by 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 for her diabetes Plan Follow up in 4 months Orders: Orders Lipid Panel 4 Months E78.00 - Pure hypercholesterolemia, unspecified Comprehensive [place]. Panel Fast 4 Months E78.00 - Pure hypercholesterolemia, unspecified Vitamin D 25-OH Total 4 Months E55.9 - Vitamin D deficiency, unspecified Hemoglobin A1c 4 Months E11.9 - Type 2 diabetes mellitus without complications Microalbumin, Random (w Creat) 4 Months E11.9 - Type 2 diabetes mellitus without complications Complete Blood Count Auto Diff 4 Months D64.9 - Anemia, unspecified TSH reflex Free T4 4 Months E78.00 - Pure hypercholesterolemia, unspecified UA CC w/rflx Micro + Cult 4 Months R30.0 - Dysuria Vitamin B12 and Folate 4 Months E53.8 - Deficiency of other specified B group vitamins Medications: New cholecalciferol (vitamin D3) 50 mcg PO DAILY 90 caps 3RF 90 days E55.9 - Vitamin D deficiency, unspecified
--- OUTSIDE RECORDS SUMMARY | 2024-11-24 13:12 | XMS_ITS | Clinical Summary ---
Author Organization [facility] Address [address] [place] [id number] Phone Care Team Providers Care Team Leader/Research Psychologist Name Role Phone Herson Dsouza MD Primary Care Provider [phone] Allergies No known active allergies Medications lisinopril [...] file Medical Devices Not on file Insurance [id number] NETWORK O [facility] MEDICARE REPLACEMENT [facility] NETWORK O [facility] MEDICARE REPLACEMENT [id number] NETWORK HMO [facility] MEDICARE REPLACEMENT [id number] NETWORK HMO [facility] MEDICARE REPLACEMENT [facility] NETWORK HMO [facility] MEDICARE REPLACEMENT [place] [address] NETWORK HMO [facility] MEDICARE REPLACEMENT Care Teams Team Leader/Research Psychologist Relationship Specialty Start Date End Date Herson Dsouza MD [address] [place] [address] Dr Cook [address] [place] [id number] PCP - General Internal Medicine 04/25/19 Additional Source Comments The information contained in this document represents components of the legal health record. It is not the complete legal health record.[facility]
== END 2024-11-24 13:46 | disposition home or self-care (01) ==
LOC: HO.HMCH 13:03
PROVIDERS: PCP Internal Medicine; Visit Provider Internal Medicine
DX: E11.22 Type 2 diabetes mellitus with diabetic chronic kidney disease (principal); N18.31 Chronic kidney disease, stage 3a; Z79.4 Long term (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; G63 Polyneuropathy in diseases classified elsewhere; E78.00 Pure hypercholesterolemia, unspecified; I10 Essential (primary) hypertension; E55.9 Vitamin D deficiency, unspecified; K21.9 Gastro-esophageal reflux disease without esophagitis; I83.811 Varicose veins of right lower extremity with pain; E66.01 Morbid (severe) obesity due to excess calories; Z68.41 Body mass index [BMI] 40.0-44.9, adult; M85.80 Other specified disorders of bone density and structure, unspecified site; L30.9 Dermatitis, unspecified; F17.200 Nicotine dependence, unspecified, uncomplicated

== ENCOUNTER → 2024-11-24 13:02 | Outpatient (BNVA) | payer OTHER, SELFPAY | PROVIDERS: PCP Internal Medicine; Visit Provider Internal Medicine | DX: E11.22 Type 2 diabetes mellitus with diabetic chronic kidney disease (principal); I12.9 Hypertensive chronic kidney disease with stage 1 through stage 4 chronic kidney disease, or unspecified chronic kidney disease; N18.31 Chronic kidney disease, stage 3a; G63 Polyneuropathy in diseases classified elsewhere; E78.00 Pure hypercholesterolemia, unspecified; E55.9 Vitamin D deficiency, unspecified; K21.9 Gastro-esophageal reflux disease without esophagitis; I83.811 Varicose veins of right lower extremity with pain; L30.9 Dermatitis, unspecified; F17.210 Nicotine dependence, cigarettes, uncomplicated; E66.01 Morbid (severe) obesity due to excess calories; E11.9 Type 2 diabetes mellitus without complications; D64.9 Anemia, unspecified; R30.0 Dysuria; E53.8 Deficiency of other specified B group vitamins; Z68.41 Body mass index [BMI] 40.0-44.9, adult; Z79.4 Long term (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 | CPT/HCPCS: 96127 ==